=== PATIENT | male | born 1950 | race Caucasian/White ===

== ENCOUNTER 2022-07-19 09:41 | Outpatient (CLI) | payer MEDICARE, SELFPAY ==
[2022-07-19 15:21] LABS: Cholesterol* 191 mg/dL (90-199)
[2022-07-19 15:22] LABS: HDL Cholesterol* 43 mg/dL (>=40); LDL Cholesterol Calculated 113 mg/dL (<100); Triglycerides* 177 mg/dL (40-149)
== END 2022-07-19 09:42 | disposition home or self-care (01) ==
PROVIDERS: PCP Physician Assistant Medical; Visit Provider Physician Assistant Medical
DX: E78.5 Hyperlipidemia, unspecified (principal); R97.20 Elevated prostate specific antigen [PSA]
CPT/HCPCS: 80061; 84153

== ENCOUNTER 2023-07-19 09:26 | Outpatient (CLI) | payer MEDICARE, SELFPAY ==
--- OUTSIDE RECORDS SUMMARY | 2023-07-25 15:57 | XMS_ITS | Data Portability ---
Author Name Unknown Address [address] [place] [address] Phone [phone] Organization [facility] Address [address] [place] [address] Care Team Providers Care Recruiter Coordinator Name Role Phone YANN ARRIETA Primary Care Provider [phone] YANN ARRIETA Referring Provider Assessment No assessment recorded. Plan of Treatment Reminders Order Date Submit Date Provider Last Modified By Organization Details Last Modified Time Details Appointments ESTABLISH ED 15 2023 10:40A M Emeterio Martel MD Not available Not available Not available Lab urinalysi s, dipstick 2022 023 [facility], [address], [place], [address], 07/26/2022 12:19:40 PSA, total, serum or plasma - Please do 1 week prior to next visit with Dr. Martel which should be around 1 year from 08/31/212021 023 [email or web address] [facility], [address] [place], [address], 08/01/2022 08:35:21 urinalysi s, dipstick 2021 022 [facility], [address], [address], [place], [address], 08/31/2021 12:51:13 urinalysi s, complete 2021 022 [id number] [facility], [address], [address], [place], [address], 09/14/2021 10:31:53 urinalysi s, complete 2020 021 [facility], [address], [address], [place], [address], 08/11/2020 16:57:55 urinalysi s, dipstick 2020 021 [facility], [address], [address], [place], [address], 08/11/2020 12:46:52 Referral None recorded. Procedures None recorded. Surgeries None recorded. Imaging None recorded. Medication Orders None recorded. Patient TargetsNo targets recorded. Patient Instructions Encounter Date Encounter Id Patient Instructions Last Modified By Organization Details Last Modified Time 07/26/2022 [id number] BPH/prostate can cer screening: No concerns with voiding. Will continue to follow that. His prostate felt benign. His PSA is good. Repeat in 1 year. Not available 07/26/2022 11:56:02 08/31/2021 [id number] BPH: He's voidin g well and without any concerns. Will continue to monitor. Prostate cancer screening: His prostate feels benign. His PSA is ok. Repeat in 1 year. Not available 08/31/2021 12:51:27 08/11/2020 [id number] BPH: He's not bothered by his voiding. [...] plasm a PSA 7.45 high Not Available [facility] [address] [place], [address], 08/10/2020 13:24:34 08/11/19 21 08/11/2020 urina lysis , dipst ick color-status yellow yellow Not Available [facility] [address] [place] [address] [address], [place], [address], 08/11/2020 12:46:52 08/11/19 21 08/11/2020 urina lysis , dipst ick clarity-stat us clear clear Not Available [facility] [address] [place] [address] [address], [place], [address], 08/11/2020 12:46:52 08/11/19 21 08/11/2020 urina lysis , dipst ick glucose-stat us negati ve mg/dL negati ve Not Available [facility] [address] [place] [address] [address], [place], [address], 08/11/2020 12:46:52 08/11/19 21 08/11/2020 urina lysis , dipst ick bilirubin-ur ine negati ve negati ve Not Available [facility] [address] [place] [address] [address], [place], [address], 08/11/2020 12:46:52 08/11/19 21 08/11/2020 urina lysis , dipst ick ketones-stat us negati ve mg/dL negati ve Not Available [facility] [address] [place] [address] [address], [place], [address], 08/11/2020 12:46:52 08/11/19 21 08/11/2020 urina lysis , dipst ick SG-status >=1.03 0 1.00-1 .03 Not Available [facility] [address], [place], [address], 08/11/2020 12:46:52 08/11/19 21 08/11/2020 urina lysis , dipst ick pH-status 5.5 5.00-8 .00 Not Available [facility] [address] [facility] [address], [place], [address], 08/11/2020 12:46:52 08/11/1908/11/2020 urina lysis , dipst ick protein-stat us negati ve mg/dL negati ve Not Available [facility] [address], [place], [address], 08/11/2020 12:46:52 08/11/1908/11/2020 urina lysis , dipst ick urobilinogen -status 0.2 E.U./d L E.U./ dL 0.2 E.U./d L Not Available [facility] [address], [place], [address], 08/11/2020 12:46:52 08/11/1908/11/2020 urina lysis , dipst ick nitrites-sta tus negati ve negati ve Not Available [facility] [address], [place], [address], 08/11/2020 12:46:52 08/11/1908/11/2020 urina lysis , dipst ick blood-urine small negati ve abnormal Not Available [facility] [address], [place], [address], 08/11/2020 12:46:52 08/11/1908/11/2020 urina lysis , dipst ick leuko-status negati ve negati ve Not Available [facility] [address], [place], [address], 08/11/2020 12:46:52 08/11/19 21 08/11/2020 urina lysis , dipst ick performed by kavin Hickman Not Available [facility] [address] [place] [address] [address], [place], [address], 08/11/2020 12:46:52 08/11/19 21 08/11/2020 urina lysis , dipst ick total urine volume (mL) 30 /mL Not Available [facility] [address] [place] [address] [address], [place], [address], 08/11/2020 12:46:52 08/11/19 21 08/11/2020 urina lysis , compl ete color -advantus yellow yellow Not Available [facility] [address] [place] [address] [address], [place], [address], 08/11/2020 16:57:54 08/11/19 21 08/11/2020 urina lysis , compl ete appearance -advantus clear clear Not Available [facility] [address] [place] [address] [address], [place], [address], 08/11/2020 16:57:54 08/11/1908/11/2020 urina lysis , compl ete glucose -advantus negati ve mg/dL negati ve Not Available [facility] [address] [place] [address] [address], [place], [address], 08/11/2020 16:57:54 08/11/1908/11/2020 urina lysis , compl ete bilirubin -advantus negati ve negati ve Not Available [facility] [address] [place] [address] [address], [place], [address], 08/11/2020 16:57:54 08/11/19 21 08/11/2020 urina lysis , compl ete ketones -advantus negati ve mg/dL negati ve Not Available [facility] [address] [place] [address] [address], [place], [address], 08/11/2020 16:57:54 08/11/19 21 08/11/2020 urina lysis , compl ete sp. gravity -advantus >=1.03 0 1.010- 1.025 Not Available [facility] [address] [place] [address] [address], [place], [address], 08/11/2020 16:57:54 08/11/19 21 08/11/2020 urina lysis , compl ete pH -advantus 5.5 5.0-8. 0 Not Available [facility] [address] [place] [address] [address], [place], [address], 08/11/2020 16:57:54 08/11/19 21 08/11/2020 urina lysis , compl ete protein -advantus negati ve mg/dL negati ve Not Available [facility] [address] [place] [address], [place], [address], 08/11/2020 16:57:54 08/11/19 21 08/11/2020 urina lysis , compl ete urobilinogen -advantus 0.2 normal Not Available [facility] [address] [place] [address], [place], [address], 08/11/2020 16:57:54 08/11/19 21 08/11/2020 urina lysis , compl ete nitrites -advantus negati ve negati ve Not Available [facility] [address] [place] [address], [place], [address], 08/11/2020 16:57:54 08/11/19 21 08/11/2020 urina lysis , compl ete blood -advantus trace- intact negati ve abnormal Not Available [facility] [address] [place] [address] [address], [place], [address], 08/11/2020 16:57:54 08/11/19 21 08/11/2020 urina lysis , compl ete leukocytes -advantus negati ve negati ve Not Available [facility] [address] [place] [address] [address], [place], [address], 08/11/2020 16:57:54 08/11/19 21 08/11/2020 urina lysis , compl ete total urine volume (mL) 30 /mL Not Available [facility] [address] [place] [address], [place], [address], 08/11/2020 16:57:54 08/11/19 21 08/11/2020 urina lysis , compl ete U-WBC 0 - 2 [hpf] 0 - 2 Not Available [facility] [address] [place] [address], [place], [address], 08/11/2020 16:57:54 08/11/19 21 08/11/2020 urina lysis , compl ete U-RBC 0 - 2 [hpf] 0 - 2 Not Available [facility] [address] [place] [address], [place], [address], 08/11/2020 16:57:54 08/11/19 21 08/11/2020 urina lysis , compl ete bacteria small [hpf] negati ve abnormal Not Available [facility] [address] [place] [address], [place], [address], 08/11/2020 16:57:54 08/11/19 21 08/11/2020 urina lysis , compl ete squamous epi small /lpf negati ve,sma ll Not Available [facility] [address] [place] [address], [place], [address], 08/11/2020 16:57:54 08/31/19 22 08/31/2021 UA WITHO [facility] color-status yellow yellow Not Available [facility] [address], [place], [address], 08/31/2021 12:51:13 08/31/19 22 08/31/[address] [facility] clarity-stat us clear clear Not Available [facility] [address], [place], [address], 08/31/2021 12:51:13 08/31/19 22 08/31/[address] [facility] glucose-stat us negati ve mg/dL negati ve Not Available [facility] [address], [place], [address], 08/31/2021 12:51:13 08/31/19 22 08/31/[address] [facility] [facility] bilirubin-ur ine negati ve negati ve Not Available [facility] [address], [place], [address], 08/31/2021 12:51:13 08/31/19 22 08/31/[address] [facility] [facility] ketones-stat us negati ve mg/dL negati ve Not Available [facility] [address], [place], [address], 08/31/2021 12:51:13 08/31/19 22 08/31/[address] SG-status 1.025 1.00-1 .03 Not Available [facility] [address], [place], [address], 08/31/2021 12:51:13 08/31/19 22 08/31/[address] pH-status 6.0 5.00-8 .00 Not Available [facility] [address], [place], [address], 08/31/2021 12:51:13 08/31/19 22 08/31/[address] [facility] [facility] protein-stat us negati ve mg/dL negati ve Not Available [facility] [address], [place], [address], 08/31/2021 12:51:13 08/31/19 22 08/31/[address] [facility] urobilinogen -status 0.2 E.U./d L E.U./ dL 0.2 E.U./d L Not Available [facility] [address] [facility] [address], [place], [address], 08/31/2021 12:51:13 08/31/19 22 08/31/[address]A [facility] nitrites-sta tus negati ve negati ve Not Available [facility] [address], [place], [address], 08/31/2021 12:51:13 08/31/19 22 08/31/[address] [facility] blood-urine small negati ve abnormal Not Available [facility] [address] [facility] [address], [place], [address], 08/31/2021 12:51:13 08/31/19 22 08/31/[address] leuko-status negati ve negati ve Not Available [facility] [address], [place], [address], 08/31/2021 12:51:13 08/31/19 22 08/31/2021 [facility]A [facility] performed by rigo Chinchilla Not Available [facility] [address], [place], [address], 08/31/2021 12:51:13 08/31/19 22 08/31/20[address] total urine volume (mL) 50 /mL Not Available [facility] [address], [place], [address], 08/31/2021 12:51:13 07/19/19 23 07/19/2022 PSA, total , serum or plasm a PSA 2.10 Not Available [facility] [address] [place], [address], 07/20/2022 12:49:07 07/26/19 23 07/26/2022 UA DIP CS STATU S color -advantus yellow yellow Not Available [facility] [address] [place] [address], [place], [address], 07/26/2022 12:19:40 07/26/19 23 07/26/2022 UA DIP CS STATU S appearance -advantus clear clear Not Available [facility] [address] [place] [address], [place], [address], 07/26/2022 12:19:40 07/26/19 23 07/26/2022 UA DIP CS STATU S glucose -advantus negati ve mg/dL negati ve Not Available [facility] [address] [place] [address], [place], [address], 07/26/2022 12:19:40 07/26/19 23 07/26/2022 UA DIP CS STATU S bilirubin -advantus negati ve negati ve Not Available [facility] [address] [place] [address], [place], [address], 07/26/2022 12:19:40 07/26/19 23 07/26/2022 UA DIP CS STATU S ketones -advantus negati ve mg/dL negati ve Not Available [facility] [address] [place] [address], [place], [address], 07/26/2022 12:19:40 07/26/19 23 07/26/2022 UA DIP CS STATU S sp. gravity -advantus 1.025 1.010- 1.025 Not Available [facility] [address] [place] [address], [place], [address], 07/26/2022 12:19:40 07/26/19 23 07/26/2022 UA DIP CS STATU S pH -advantus 5.0 5.0-8. 0 Not Available [facility] [address] [facility] [facility] [address], [place], [address], 07/26/2022 12:19:40 07/26/19 23 07/26/2022 UA DIP CS STATU S protein -advantus negati ve mg/dL negati ve Not Available [facility] [address] [place] [address] [address], [place], [address], 07/26/2022 12:19:40 07/26/19 23 07/26/2022 UA DIP CS STATU S urobilinogen -advantus 0.2 0.2 E.U./d L Not Available [facility] [address] [facility] [facility] [address], [place], [address], 07/26/2022 12:19:40 07/26/19 23 07/26/2022 UA DIP CS STATU S nitrites -advantus negati ve negati ve Not Available [facility] [address] [place] [address] [address], [place], [address], 07/26/2022 12:19:40 07/26/19 23 07/26/2022 UA DIP CS STATU S blood -advantus modera te negati ve abnormal Not Available [facility] [address] [facility] [address], [place], [address], 07/26/2022 12:19:40 07/26/19 23 07/26/2022 UA DIP CS STATU S leukocytes -advantus negati ve negati ve Not Available [facility] [address] [facility] [facility] [address], [place], [address], 07/26/2022 12:19:40 07/26/19 23 07/26/2022 UA DIP CS STATU S performed by myrna Dean Not Available [facility] [address] [facility] [facility] [address], [place], [address], 07/26/2022 12:19:40 07/26/19 23 07/26/2022 UA DIP CS STATU S total urine volume (mL) 50 /mL Not Available [facility] [address] [place] [address] [address], [place], [address], 07/26/2022 12:19:40 07/26/19 23 07/26/2022 UA MICRO SCOPI C U-WBC 0 - 2 [hpf] 0 - 2 Not Available [facility] [address], [place], [address], 07/26/2022 12:19:42 07/26/19 23 07/26/2022 UA MICRO SCOPI C U-RBC 0 - 2 [hpf] 0 - 2 Not Available [facility] [address] [facility] [facility] [address], [place], [address], 07/26/2022 12:19:42 07/26/19 23 07/26/2022 UA MICRO SCOPI C bacteria small [hpf] negati ve abnormal Not Available [facility] [address] [place] [address] [address], [place], [address], 07/26/2022 12:19:42 07/26/19 23 07/26/2022 UA MICRO SCOPI C squamous epi negati ve /lpf negati ve,sma ll Not Available [facility] [address] [place] [address] [address], [place], [address], 07/26/2022 12:19:42 07/26/19 23 07/26/2022 UA MICRO SCOPI C hyaline cast 0 - 5 [hpf] 0 - 5 Not Available [facility] [address] [place] [address] [address], [place], [address], 07/26/2022 12:19:42 Result Notes None recorded. Problems Name Status Onset Date Resolution Date Notes Provider Name and Address Organization Details Recorded Time Microscopic hematuria Active 020 R31.21 : Microscopic hematuria Not Available [facility] 0 00:24:56 Prostate specific antigen above reference range Active 021 Emeterio Martel MD [address] [place] [address],[address], [place], [address], [facility] 1 13:05:15 Screening for malignant neoplasm of prostate Active 022 Emeterio Martel MD [address] [place] [address],[address] [address], [facility] 2 12:51:27 Benign prostatic hyperplasia with outflow obstruction Active 022 Emeterio Martel MD [address] [place] [address],[facility] [address], [place], [address], [facility] 2 12:51:28 Problem Notes None recorded. Procedures Surgical History Date Name Laterality Status Provider Name and Address Organization Details Recorded Time 07/26/19 23 Bladder Scan completed Hector sweet [facility] 07/26/2022 11:52:57 08/31/19 22 Bladder Scan completed Bernadine sweet [facility] 08/31/2021 12:43:36 08/11/19 21 Past Data Reviewed completed Emeterio Martel MD [address] [place] [address],[facility] [address], [place], [address], [facility] 08/11/2020 13:14:55 08/11/19 21 Bladder Scan completed Bernadine sweet [facility] 08/11/2020 12:59:52 09/03/19 20 urine capacity measure [...] Name and Address Organization Details Recorded Time [id number] simvastat in medicatio n Not available Not available Not available 12/16/2019 05373 RxNorm Not Available [facility] 0 23:59:00 Medications Name Sig Start Date [...] Updated DateTime 07/26/2022 165.1 cm 23.6 kg/m2 [address]0415.[address] [facility] 07/26/2022 11:29:18 Date Recorded Body height Body mass index (BMI) Body weight Provider Name and Address Organization Details Last Updated DateTime 08/11/2020 165.1 cm 26.1 kg/m2 [address] [facility] 08/11/2020 12:58:23 Date Recorded Body height Body weight Body mass index (BMI) Provider Name and Address Organization Details Last Updated DateTime 08/31/2021 165.1 cm 12721.31915 74565 g 23.6 kg/m2 Not Available Health Note [...] prostate:Father Cancer, pancreatic:Mother Medical History Condition Response Diabetes N Sexually Transmitted Infection N Bleeding Disorder N High Blood Pressure Y Kidney Stones N Cancer N Lung Disease N Depression N High Cholesterol Y GERD/Acid Reflux N Heart Disease N Immunizations Vaccine Type Date Status Provider Name and Address Organization Details Recorded Time influenza, unspecified formulation 04/18/2021 completed Bernadine sweet [facility] 08/31/2021 12:40:53 pneumococcal, unspecified formulation 08/08/2020 [facility] 12:40:53 SARS-COV-2 (COVID-19) vaccine, UNSPECIFIED 09/30/2020 [facility] 08/31/2021 12:40:53 Influenza, seasonal, injectable, preservative free 08/17/2011 completed Bernadine sweet [facility] 08/31/2021 12:40:53 Influenza, high dose seasonal 04/27/2019 completed Bernadine sweet [facility] 08/31/2021 12:40:53 influenza, unspecified formulation 04/17/2006 completed Bernadine sweet [facility] 08/31/2021 12:40:53 zoster recombinant 02/25/2020 [facility]21 12:40:53 Influenza, high dose seasonal 06/14/2015 [facility] 08/31/2021 12:40:53 influenza, high-dose, quadrivalent 04/18/2021 completed Bernadine sweet [facility] 08/31/2021 12:40:53 Tdap 08/01/2007 [facility] 08/31/2021 12:40:53 Pneumococcal conjugate PCV 13 07/29/2015 completed Bernadine sweet [facility] 08/31/2021 12:40:53 pneumococcal polysaccharide PPV23 08/08/2020 [facility] 08/[facility]21 12:40:53 influenza, high-dose, quadrivalent 04/26/2020 completed Bernadine sweet, [facility] 08/31/2021 12:40:53 Td (adult), 2 Lf tetanus toxoid, preservative free, adsorbed 08/10/2019 completed Bernadine sweet, [facility] 08/31/2021 12:40:53 COVID-19, mRNA, LNP-S, PF, 30 mcg/0.3 mL dose 04/18/2021 completed Bernadine sweet, [facility] 08/31/2021 12:40:53 Novel [id number], all formulations 06/30/2009 [facility] 08/31/2021 12:40:53 Influenza, seasonal, injectable, preservative free 06/30/2009 completed Bernadine sweet, [facility] 08/31/2021 12:40:53 influenza, unspecified formulation 05/22/2007 [facility] 08/31/2021 12:40:53 zoster recombinant 08/14/2021 [facility] 08/31/[facility]21 12:40:53 COVID-19, mRNA, LNP-S, PF, 30 mcg/0.3 mL dose 09/30/2020 [facility]/31/2021 12:40:53 COVID-19, mRNA, LNP-S, PF, 30 mcg/0.3 mL dose 09/09/2020 completed Bernadine sweet, [facility] 08/31/2021 12:40:53 pneumococcal polysaccharide PPV23 08/17/2011 [facility] 08/31/2021 12:40:53 Td (adult), 2 Lf tetanus toxoid, preservative free, adsorbed 09/13/1999 [facility] 08/31/2021 12:40:53 Influenza, high dose seasonal 04/21/2018 [facility]/31/2021 12:40:53 Influenza, high dose seasonal 04/16/2017 [facility]21 12:40:53 Influenza, high dose seasonal 04/11/2016 completed Bernadine sweet, [facility] 08/31/2021 12:40:53 zoster recombinant 08/17/2020 completed Bernadine sweet [facility] 08/31/2021 12:40:53 Pneumococcal conjugate PCV 13 08/08/2020 completed Brenadine sweet, [facility] 08/31/2021 12:40:53 pneumococcal, unspecified formulation 08/08/2020 completed Not Available Health Note 07/22/2022 12:12:02 SARS-COV-2 (COVID-19) vaccine, UNSPECIFIED 03/22/2022 completed Not Available Health Note 07/22/2022 12:12:02 influenza, unspecified formulation 03/22/2022 completed Not Available Health Note 07/22/2022 12:12:02 Past Encounters Encounter ID Performer Location Encounter Start Date Encounter Closed Date Diagnosis/Indication [id number] Emeterio Martel MD [address] [address] 08/11/2020 12:33:03 08/11/2020 14:53:14 Benign prostatic hyperplasia with outflow obstruction Microscopic hematuria Prostate specific antigen above reference range [id number] Emeterio Martel MD [address] [address] 08/31/2021 12:33:52 08/31/2021 12:53:36 Benign prostatic hyperplasia with outflow obstruction Screening for malignant neoplasm of prostate [id number] Emeterio Martel MD [facility] [address] [place] [address] 07/26/2022 11:28:18 07/26/2022 12:00:09 Benign prostatic hyperplasia [...] AFTER 19 (MEDICARE REPLACEMENT/ ADVANTAGE - PPO) [id number] Navin Mandel [id number] Navin Mandel 08/31/2021 1 [employer] - DOS ON OR AFTER 19 (MEDICARE REPLACEMENT/ ADVANTAGE - PPO) [id number] Navin Mandel [id number] Navin Mandel 08/11/2020 1 [facility] - DOS PRIOR TO 2021 [id number] Navin Mandel [id number] Navin Mandel Notes Date Note Type Note Provider Name and Address Organization Details Recorded Time 08/11/2020 text/html HPI Notes: 2019: HTN, HLD, gout, [facility]EDAR, DJD, ED. CT A/P 07/11/2019 ([place]) = acute diverticulitis, enlarged heterogeneous prostate with [...] or renal cancer. Emeterio Martel MD [address] [facility],[address], [place], [place], [id number], [facility] 08/11/2020 13:16:26 08/31/2021 text/html HPI Notes: 2019: HTN, HLD, gout, KEDAR, DJD, ED. CT A/P 07/11/2019 ([place]) = acute diverticulitis, enlarged heterogeneous prostate with [...] or renal cancer. Emeterio Martel MD [address] [facility] [facility],[address], [place], [address], [place] [facility] 08/31/2021 12:53:23 07/26/2022 text/html HPI Notes: 2019: HTN, HLD, gout, KEDAR, DJD, ED. CT A/P 07/11/2019 ([place]) = acute diverticulitis, enlarged heterogeneous prostate with [...] or renal cancer. Emeterio Martel MD [address] [facility] [facility],[address], [place], [address], [facility] 07/26/2022 11:57:59
== END 2023-07-19 09:27 | disposition home or self-care (01) ==
LOC: NFLDREF 07-25 15:55
PROVIDERS: PCP Physician Assistant Medical; Referring Provider Physician Assistant Medical; Visit Provider Physician Assistant Medical
DX: E78.5 Hyperlipidemia, unspecified (principal); I10 Essential (primary) hypertension; R05.9 Cough, unspecified; R73.09 Other abnormal glucose; R97.20 Elevated prostate specific antigen [PSA]
CPT/HCPCS: 80053; 80061; 84153

== ENCOUNTER 2023-07-23 10:15 | Outpatient (CLI) | payer MEDICARE, SELFPAY ==
--- OUTSIDE RECORDS SUMMARY | 2023-07-23 10:19 | XMS_ITS | Data Portability ---
Author Name Unknown Address [address] [place] [address] Phone [phone] Organization [facility] [place] Address [address] [place] [address] Care Team Providers Care Tentering Machine Feeder Name Role Phone YANN ARRIETA Primary Care Provider [phone] YANN ARRIETA Referring Provider Assessment No assessment recorded. Plan of Treatment Reminders Order Date Submit Date Provider Last Modified By Organization Details Last Modified Time Details Appointments ESTABLISH ED 15 2023 10:40A M Emeterio Martel MD Not available Not available Not available Lab urinalysi s, dipstick 2022 023 [facility], [address] [facility] [address] [facility], [place], [address], 07/26/2022 12:19:40 PSA, total, serum or plasma - Please do 1 week prior to next visit with Dr. Martel which should be around 1 year from 08/31/212021 023 [facility], [address] [place], [address], 08/01/2022 08:35:21 urinalysi s, dipstick 2021 022 [facility], [address] [facility] [address], [place], [address], 08/31/2021 12:51:13 urinalysi s, complete 2021 022 [email or web address] [facility], [address], [place], [address], 09/14/2021 10:31:53 urinalysi s, complete 2020 021 [facility], [address], [place], [address], 08/11/2020 16:57:55 urinalysi s, dipstick 2020 021 [facility], [address], [place], [address], 08/11/2020 12:46:52 Referral None recorded. Procedures None recorded. Surgeries None recorded. Imaging None recorded. Medication Orders None recorded. Patient TargetsNo targets recorded. Patient Instructions Encounter Date Encounter Id Patient Instructions Last Modified By Organization Details Last Modified Time 07/26/2022 [id number] BPH/prostate can cer screening: No concerns with voiding. Will continue to follow that. His prostate felt benign. His PSA is good. Repeat in 1 year. Not available 07/26/2022 11:56:02 08/31/2021 [id number] BPH: He's voidin g well and without any concerns. Will continue to monitor. Prostate cancer screening: His prostate feels benign. His PSA is ok. Repeat in 1 year. Not available 08/31/2021 12:51:27 08/11/2020 [id number] BPH: He's not bothered by his voiding. Will continue to monitor symptoms. Microscopic hematuria: Will send his urine for microscopy to see if he has blood in his urine or not. If he does, that's ok as he had a negative work up last year. Elevated PSA: His PSA jumped a lot from the last value. His prostate feels benign. I suspect that he had a catheter placed at the time of his laparoscopic cholecystectomy to help drain the bladder and then removed at the end of surgery. This can cause a PSA to be false elevated and his PSA was drawn 6 days after surgery. I recommend repeating the PSA in 1 month. If still elevated, will need to work it up. Will determine follow up after the next PSA. Not available 08/11/2020 13:14:28 Reason for Referral None Reported. Results Created Date Observation Date Name Description Value Unit Range Abnormal Flag LastModifiedBy Organization Detail LastModifiedTime 07/18/19 21 07/18/2020 PSA, total , serum or plasm a PSA 7.45 high Not Available [facility] [address] [place], [address], 08/10/2020 13:24:34 08/11/19 21 08/11/2020 urina lysis , dipst ick color-status yellow yellow Not Available [facility] [address] [place] [address] [address], [place], [address], 08/11/2020 12:46:52 08/11/19 21 08/11/2020 urina lysis , dipst ick clarity-stat us clear clear Not Available [facility] [address] [place] [address] [address], [place], [address], 08/11/2020 12:46:52 08/11/19 21 08/11/2020 urina lysis , dipst ick glucose-stat us negati ve mg/dL negati ve Not Available [facility] [address] [place] [address] [address], [place], [address], 08/11/2020 12:46:52 08/11/19 21 08/11/2020 urina lysis , dipst ick bilirubin-ur ine negati ve negati ve Not Available [facility] [address] [place] [address] [address], [place], [address], 08/11/2020 12:46:52 08/11/19 21 08/11/2020 urina lysis , dipst ick ketones-stat us negati ve mg/dL negati ve Not Available [facility] [address] [place] [address] [address], [place], [address], 08/11/2020 12:46:52 08/11/19 21 08/11/2020 urina lysis , dipst ick SG-status >=1.03 0 1.00-1 .03 Not Available [facility] [address] [facility] [address], [place], [address], 08/11/2020 12:46:52 08/11/19 21 08/11/2020 urina lysis , dipst ick pH-status 5.5 5.00-8 .00 Not Available [facility] [address] [facility] [address], [place], [address], 08/11/2020 12:46:52 08/11/1908/11/2020 urina lysis , dipst ick protein-stat us negati ve mg/dL negati ve Not Available [facility] [address] [facility] [address], [place], [address], 08/11/2020 12:46:52 08/11/1908/11/2020 urina lysis , dipst ick urobilinogen -status 0.2 E.U./d L E.U./ dL 0.2 E.U./d L Not Available [facility] [address] [facility] [address], [place], [address], 08/11/2020 12:46:52 08/11/1908/11/2020 urina lysis , dipst ick nitrites-sta tus negati ve negati ve Not Available [facility] [address] [facility] [address], [place], [address], 08/11/2020 12:46:52 08/11/1908/11/2020 urina lysis , dipst ick blood-urine small negati ve abnormal Not Available [facility] [address] [facility] [address], [place], [address], 08/11/2020 12:46:52 08/11/1908/11/2020 urina lysis , dipst ick leuko-status negati ve negati ve Not Available [facility] [address] [facility] [address], [place], [address], 08/11/2020 12:46:52 08/11/19 21 08/11/2020 urina lysis , dipst ick performed by kavin Hickman Not Available [facility] [address] [place] [address] [address], [place], [address], 08/11/2020 12:46:52 08/11/19 21 08/11/2020 urina lysis , dipst ick total urine volume (mL) 30 /mL Not Available [facility] [address] [place] [address] [address], [place], [address], 08/11/2020 12:46:52 08/11/19 21 08/11/2020 urina lysis , compl ete color -advantus yellow yellow Not Available [facility] [address] [place] [address] [address], [place], [address], 08/11/2020 16:57:54 08/11/19 21 08/11/2020 urina lysis , compl ete appearance -advantus clear clear Not Available [facility] [address] [place] [address] [address], [place], [address], 08/11/2020 16:57:54 08/11/1908/11/2020 urina lysis , compl ete glucose -advantus negati ve mg/dL negati ve Not Available [facility] [address] [place] [address] [address], [place], [address], 08/11/2020 16:57:54 08/11/1908/11/2020 urina lysis , compl ete bilirubin -advantus negati ve negati ve Not Available [facility] [address] [place] [address] [address], [place], [address], 08/11/2020 16:57:54 08/11/19 21 08/11/2020 urina lysis , compl ete ketones -advantus negati ve mg/dL negati ve Not Available [facility] [address] [place] [address] [address], [place], [address], 08/11/2020 16:57:54 08/11/19 21 08/11/2020 urina lysis , compl ete sp. gravity -advantus >=1.03 0 1.010- 1.025 Not Available [facility] [address] [place] [address] [address], [place], [address], 08/11/2020 16:57:54 08/11/19 21 08/11/2020 urina lysis , compl ete pH -advantus 5.5 5.0-8. 0 Not Available [facility] [address] [place] [address] [address], [place], [address], 08/11/2020 16:57:54 08/11/19 21 08/11/2020 urina lysis , compl ete protein -advantus negati ve mg/dL negati ve Not Available [facility] [address] [place] [address], [place], [address], 08/11/2020 16:57:54 08/11/19 21 08/11/2020 urina lysis , compl ete urobilinogen -advantus 0.2 normal Not Available [facility] [address] [place] [address], [place], [address], 08/11/2020 16:57:54 08/11/19 21 08/11/2020 urina lysis , compl ete nitrites -advantus negati ve negati ve Not Available [facility] [address] [place] [address], [place], [address], 08/11/2020 16:57:54 08/11/19 21 08/11/2020 urina lysis , compl ete blood -advantus trace- intact negati ve abnormal Not Available [facility] [address] [place] [address] [address], [place], [address], 08/11/2020 16:57:54 08/11/19 21 08/11/2020 urina lysis , compl ete leukocytes -advantus negati ve negati ve Not Available [facility] [address] [place] [address] [address], [place], [address], 08/11/2020 16:57:54 08/11/19 21 08/11/2020 urina lysis , compl ete total urine volume (mL) 30 /mL Not Available [facility] [address] [place] [address], [place], [address], 08/11/2020 16:57:54 08/11/19 21 08/11/2020 urina lysis , compl ete U-WBC 0 - 2 [hpf] 0 - 2 Not Available [facility] [address] [place] [address], [place], [address], 08/11/2020 16:57:54 08/11/19 21 08/11/2020 urina lysis , compl ete U-RBC 0 - 2 [hpf] 0 - 2 Not Available [facility] [address] [place] [address], [place], [address], 08/11/2020 16:57:54 08/11/19 21 08/11/2020 urina lysis , compl ete bacteria small [hpf] negati ve abnormal Not Available [facility] [address] [place] [address], [place], [address], 08/11/2020 16:57:54 08/11/19 21 08/11/2020 urina lysis , compl ete squamous epi small /lpf negati ve,sma ll Not Available [facility] [address] [place] [address], [place], [address], 08/11/2020 16:57:54 08/31/19 22 08/31/2021 UA WITHO [facility] color-status yellow yellow Not Available [facility] [address] [facility] [address], [place], [address], 08/31/2021 12:51:13 08/31/19 22 08/31/[address] [facility] clarity-stat us clear clear Not Available [facility] [address] [facility] [address], [place], [address], 08/31/2021 12:51:13 08/31/19 22 08/31/[address] [facility] [facility] glucose-stat us negati ve mg/dL negati ve Not Available [facility] [address] [facility] [address], [place], [address], 08/31/2021 12:51:13 08/31/19 22 08/31/[address] [facility] [facility] bilirubin-ur ine negati ve negati ve Not Available [facility] [address] [facility] [address], [place], [address], 08/31/2021 12:51:13 08/31/19 22 08/31/[address] [facility] [facility] ketones-stat us negati ve mg/dL negati ve Not Available [facility] [address] [facility] [address], [place], [address], 08/31/2021 12:51:13 08/31/19 22 08/31/[address] [facility] [facility] SG-status 1.025 1.00-1 .03 Not Available [facility] [address] [facility] [address], [place], [address], 08/31/2021 12:51:13 08/31/19 22 08/31/[address] [facility] pH-status 6.0 5.00-8 .00 Not Available [facility] [address] [facility] [address], [place], [address], 08/31/2021 12:51:13 08/31/19 22 08/31/[address] [facility] protein-stat us negati ve mg/dL negati ve Not Available [facility] [address] [facility] [address], [place], [address], 08/31/2021 12:51:13 08/31/19 22 08/31/[address] urobilinogen -status 0.2 E.U./d L E.U./ dL 0.2 E.U./d L Not Available [facility] [address] [facility] [address], [place], [address], 08/31/2021 12:51:13 08/31/19 22 08/31/[address] [facility] nitrites-sta tus negati ve negati ve Not Available [facility] [address] [facility] [address], [place], [address], 08/31/2021 12:51:13 08/31/19 22 08/31/[address] [facility] blood-urine small negati ve abnormal Not Available [facility] [address] [facility] [address], [place], [address], 08/31/2021 12:51:13 08/31/19 22 08/31/[address] leuko-status negati ve negati ve Not Available [facility] [address] [facility] [address], [place], [address], 08/31/2021 12:51:13 08/31/19 22 08/31/20[address] [facility] performed by rigo Chinchilla Not Available [facility] [address] [facility] [address], [place], [address], 08/31/2021 12:51:13 08/31/19 22 08/31/[address] [facility] [facility] total urine volume (mL) 50 /mL Not Available [facility] [address] [facility] [address], [place], [address], 08/31/2021 12:51:13 07/19/19 23 07/19/2022 PSA, total , serum or plasm a PSA 2.10 Not Available [facility] [address] [place], [address], 07/20/2022 12:49:07 07/26/19 23 07/26/2022 UA DIP CS STATU S color -advantus yellow yellow Not Available [facility] [address] [place] [address], [place], [address], 07/26/2022 12:19:40 07/26/19 23 07/26/2022 UA DIP CS STATU S appearance -advantus clear clear Not Available [facility] [address] [place] [address], [place], [address], 07/26/2022 12:19:40 07/26/19 23 07/26/2022 UA DIP CS STATU S glucose -advantus negati ve mg/dL negati ve Not Available [facility] [address] [place] [address], [place], [address], 07/26/2022 12:19:40 07/26/19 23 07/26/2022 UA DIP CS STATU S bilirubin -advantus negati ve negati ve Not Available [facility] [address] [place] [address], [place], [address], 07/26/2022 12:19:40 07/26/19 23 07/26/2022 UA DIP CS STATU S ketones -advantus negati ve mg/dL negati ve Not Available [facility] [address] [place] [address], [place], [address], 07/26/2022 12:19:40 07/26/19 23 07/26/2022 UA DIP CS STATU S sp. gravity -advantus 1.025 1.010- 1.025 Not Available [facility] [address] [place] [address], [place], [address], 07/26/2022 12:19:40 07/26/19 23 07/26/2022 UA DIP CS STATU S pH -advantus 5.0 5.0-8. 0 Not Available [facility] [address] [facility] [address], [place], [address], 07/26/2022 12:19:40 07/26/19 23 07/26/2022 UA DIP CS STATU S protein -advantus negati ve mg/dL negati ve Not Available [facility] [address] [place] [address] [address], [place], [address], 07/26/2022 12:19:40 07/26/19 23 07/26/2022 UA DIP CS STATU S urobilinogen -advantus 0.2 0.2 E.U./d L Not Available [facility] [address] [facility] [address], [place], [address], 07/26/2022 12:19:40 07/26/19 23 07/26/2022 UA DIP CS STATU S nitrites -advantus negati ve negati ve Not Available [facility] [address] [place] [address] [address], [place], [address], 07/26/2022 12:19:40 07/26/19 23 07/26/2022 UA DIP CS STATU S blood -advantus modera te negati ve abnormal Not Available [facility] [address] [facility] [address], [place], [address], 07/26/2022 12:19:40 07/26/19 23 07/26/2022 UA DIP CS STATU S leukocytes -advantus negati ve negati ve Not Available [facility] [address] [facility] [address], [place], [address], 07/26/2022 12:19:40 07/26/19 23 07/26/2022 UA DIP CS STATU S performed by myrna Dean Not Available [facility] [address] [facility] [address], [place], [address], 07/26/2022 12:19:40 07/26/19 23 07/26/2022 UA DIP CS STATU S total urine volume (mL) 50 /mL Not Available [facility] [address] [place] [address] [address], [place], [address], 07/26/2022 12:19:40 07/26/19 23 07/26/2022 UA MICRO SCOPI C U-WBC 0 - 2 [hpf] 0 - [address] [facility] [address] [facility] [address], [place], [address], 07/26/2022 12:19:42 07/26/19 23 07/26/2022 UA MICRO SCOPI C U-RBC 0 - 2 [hpf] 0 - [address] [facility] [address] [facility] [address], [place], [address], 07/26/2022 12:19:42 07/26/19 23 07/26/2022 UA MICRO SCOPI C bacteria small [hpf] negati ve abnormal Not Available [facility] [address] [place] [address] [address], [place], [address], 07/26/2022 12:19:42 07/26/19 23 07/26/2022 UA MICRO SCOPI C squamous epi negati ve /lpf negati ve,sma ll Not Available [facility] [address] [place] [address] [address], [place], [address], 07/26/2022 12:19:42 07/26/19 23 07/26/2022 UA MICRO SCOPI C hyaline cast 0 - 5 [hpf] 0 - 5 Not Available [facility] [address] [place] [address] [address], [place], [address], 07/26/2022 12:19:42 Result Notes None recorded. Problems Name Status Onset Date Resolution Date Notes Provider Name and Address Organization Details Recorded Time Microscopic hematuria Active 020 R31.21 : Microscopic hematuria Not Available [facility] 0 00:24:56 Prostate specific antigen above reference range Active 021 Emeterio Martel MD [address] [place] [address],[address], [place], [address], [facility] 1 13:05:15 Screening for malignant neoplasm of prostate Active 022 Emeterio Martel MD [address] [place] [address],[address] [address], [facility] 2 12:51:27 Benign prostatic hyperplasia with outflow obstruction Active 022 Emeterio Martel MD [address] [place] [address],[facility] [address], [place], [address], [facility] 2 12:51:28 Problem Notes None recorded. Procedures Surgical History Date Name Laterality Status Provider Name and Address Organization Details Recorded Time 07/26/19 23 Bladder Scan completed Hector sweet [facility] 07/26/2022 11:52:57 08/31/19 22 Bladder Scan completed Bernadine sweet [facility] 08/31/2021 12:43:36 08/11/19 21 Past Data Reviewed completed Emeterio Martel MD [address] [place] [address],[facility] [address], [place], [address], [facility] 08/11/2020 13:14:55 08/11/19 21 Bladder Scan completed Bernadine sweet [facility] 08/11/2020 12:59:52 09/03/19 20 urine capacity measure completed Not Available Health Note 07/22/2022 12:11:57 09/03/19 20 Cystoscopy completed Not Available Health Note 07/22/2022 12:11:57 08/09/19 20 Colonoscopy thru stoma spx completed Not Available [facility] Note 07/22/2022 12:11:57 Laparoscopic cholecystectomy completed Not Available Health Note 07/22/2022 12:11:57 Imaging Results None recorded. Procedure Notes None recorded. Medical Equipment None Reported. Allergies Allergen ID Allergen Name Allergen Category Reaction Reaction Severity Criticality Documentation Date Start Date Code Code System Note Provider Name and Address Organization Details Recorded Time 764500 simvastat in medicatio n Not available Not available Not available 12/16/2019 46566 RxNorm Not Available [facility] 0 23:59:00 Medications Name Sig Start Date Stop Date Status Note LastModified by Organization Details LastModified Time pravastat in 40 mg tablet TAKE ONE TABLET BY MOUTH AT BEDTIME active HN: Patient reports taking Not Available Not Available Not Available lisinopri l 20 mg tablet TAKE 1 TABLET BY MOUTH DAILY. active HN: Patient reports taking Not Available Not Available Not Available ketorolac 0.5 % eye drops Beginnin g 4 hours after surgery, instill 1 drop in surgical eye 4 times daily until gone. Do not exceed 3 weeks. active Not Available Not Available No t Available prednisol one acetate 1 % eye drops,alize pension Beginnin g 4 hours after surgery, instill 1 drop in surgical eye 4 times daily until gone. Do not exceed 3 weeks. active Not Available Not Available No t Available amoxicill in 875 mg-potass ium clavulana te 125 mg tablet TAKE 1 TABLET BY MOUTH TWICE DAILY FOR 7 DAYS 08/11 completed Not Available Not Available Not Available oxycodone 5 mg tablet TAKE 1-2 TABLETS BY MOUTH EVERY 4 HOURS NEEDED. MAX 6 TABLETS PER DAY. 08/11 completed Not Available Not Available Not Available Fish Oil active HN: Patient reports taking Not Available Not Available Not Available multivita min MULTIVIT KENDRICK 1/day active Not Available Not Available No t Available coQ10 (liposoma l ubiquinol ) 300mg 1/day active Not Available Not Available No t Available gatifloxa juan 0.5 % eye drops Beginnin g 4 hours after surgery, instill 1 drop in surgical eye 4 times daily until gone. Do not exceed 3 weeks. active Not Available Not Available No t Available Adult Aspirin Regimen 81 mg tablet,de layed release Take 1 tablet every day by oral route. active HN: Patient reports taking Not Available Not Available Not Available Vitals Date Recorded Body height Body mass index (BMI) Body weight Provider Name and Address Organization Details Last Updated DateTime 07/26/2022 165.1 cm 23.6 kg/m2 34895.12 g Peter Ruud [facility] 07/26/2022 11:29:18 Date Recorded Body height Body mass index (BMI) Body weight Provider Name and Address Organization Details Last Updated DateTime 08/11/2020 165.1 cm 26.1 kg/m2 48972 g Bernadine Haas [facility] 08/11/2020 12:58:23 Date Recorded Body height Body weight Body mass index (BMI) Provider Name and Address Organization Details Last Updated DateTime 08/31/2021 165.1 cm 38073.55311 20655 g 23.6 kg/m2 Not Available Health Note 08/31/2021 12:34:51 Social History Question Answer Notes LastModified by Organizat ion Details LastModified Time Tobacco Smoking Status Former Smoker Not Available Health Note 07/22/2022 12:11:58 What Is Your Level Of Alcohol Consumption? Occasional [email or web address] Information not available 07/22/2022 What Is Your Level Of Caffeine Consumption? Moderate [email or web address] Information not available 07/22/2022 How Much Tobacco Do You Chew? None [email or web address] Information not available 07/22/2022 Do You Or Have You Ever Used E-cigarettes Or Vape? Never Used Electronic Cigarettes [email or web address] Information not available 07/22/2022 When Did You Quit Smoking? 16+yearssincel astcilyssa Information not available 07/26/2022 Race White [email or web address] Information n ot available 12/17/2019 Marital Status [email or web address] Informatio n not available 08/27/2021 What Was The Date Of Your Most Recent Tobacco Screening? 07/26/2022 [email or web address] Information not available 07/22/2022 Do You Or Have You Ever Used Smokeless Tobacco? Never Used Smokeless Tobacco [email or web address] Information not available 07/22/2022 Do You Use Any Illicit Or Recreational Drugs? No [email or web address] Information not available 07/22/2022 Has Tobacco Cessation Counseling Been Provided? No Information not available 07/26/2022 How Many Years Have You Smoked Tobacco? 10 [email or web address] Information not available 07/22/2022 Sex: Male Functional Status None recorded. Mental Status None recorded. Family History Relationship Description Onset Age of this Age Resolved Age Notes Notes:Diabetes:Runs in Famil y colon cancer:Father Cancer, prostate:Father Cancer, pancreatic:Mother Medical History Condition Response Sexually Transmitted Infection N Diabetes N Bleeding Disorder N High Blood Pressure Y Kidney Stones N Cancer N Lung Disease N Depression N High Cholesterol Y GERD/Acid Reflux N Heart Disease N Immunizations Vaccine Type Date Status Provider Name and Address Organization Details Recorded Time influenza, unspecified formulation 04/18/2021 completed Bernadine sweet [facility] 08/31/2021 12:40:53 pneumococcal, unspecified formulation 08/08/2020 [facility] 12:40:53 SARS-COV-2 (COVID-19) vaccine, UNSPECIFIED 09/30/2020 [facility] 08/31/2021 12:40:53 Influenza, seasonal, injectable, preservative free 08/17/2011 completed Bernadine sweet [facility] 08/31/2021 12:40:53 Influenza, high dose seasonal 04/27/2019 completed Bernadine sweet [facility] 08/31/2021 12:40:53 influenza, unspecified formulation 04/17/2006 completed Bernadine sweet [facility] 08/31/2021 12:40:53 zoster recombinant 02/25/2020 [facility] 12:40:53 Influenza, high dose seasonal 06/14/2015 [facility]21 12:40:53 influenza, high-dose, quadrivalent 04/18/2021 completed Bernadine sweet [facility] 08/31/2021 12:40:53 Tdap 08/01/2007 [facility]21 12:40:53 Pneumococcal conjugate PCV 13 07/29/2015 completed Bernadine sweet [facility] 08/31/2021 12:40:53 pneumococcal polysaccharide PPV23 08/08/2020 [facility] 12:40:53 influenza, high-dose, quadrivalent 04/26/2020 completed Bernadine sweet, [facility] 08/31/2021 12:40:53 Td (adult), 2 Lf tetanus toxoid, preservative free, adsorbed 08/10/2019 completed Bernadine sweet, [facility] 08/31/2021 12:40:53 COVID-19, mRNA, LNP-S, PF, 30 mcg/0.3 mL dose 04/18/2021 completed Bernadine sweet, [facility] 08/31/2021 12:40:53 Novel Rirtyfqos-[id number], all formulations 06/30/2009 [facility]21 12:40:53 Influenza, seasonal, injectable, preservative free 06/30/2009 completed Bernadine sweet, [facility] 08/31/2021 12:40:53 influenza, unspecified formulation 05/22/2007 [facility] 12:40:53 zoster recombinant 08/14/2021 [facility]21 12:40:53 COVID-19, mRNA, LNP-S, PF, 30 mcg/0.3 mL dose 09/30/2020 [facility]21 12:40:53 COVID-19, mRNA, LNP-S, PF, 30 mcg/0.3 mL dose 09/09/2020 completed Bernadine sweet, [facility] 08/31/2021 12:40:53 pneumococcal polysaccharide PPV23 08/17/2011 [facility]21 12:40:53 Td (adult), 2 Lf tetanus toxoid, preservative free, adsorbed 09/13/1999 [facility]21 12:40:53 Influenza, high dose seasonal 04/21/2018 [facility]21 12:40:53 Influenza, high dose seasonal 04/16/2017 [facility] 12:40:53 Influenza, high dose seasonal 04/11/2016 completed Bernadine sweet, [facility] 08/31/2021 12:40:53 zoster recombinant 08/17/2020 completed Bernadine sweet [facility] 08/31/2021 12:40:53 Pneumococcal conjugate PCV 13 08/08/2020 completed Bernadine sweet, [facility] 08/31/2021 12:40:53 pneumococcal, unspecified formulation 08/08/2020 completed Not Available Health Note 07/22/2022 12:12:02 SARS-COV-2 (COVID-19) vaccine, UNSPECIFIED 03/22/2022 completed Not Available Health Note 07/22/2022 12:12:02 influenza, unspecified formulation 03/22/2022 completed Not Available Health Note 07/22/2022 12:12:02 Past Encounters Encounter ID Performer Location Encounter Start Date Encounter Closed Date Diagnosis/Indication [id number] Emeterio Martel MD [address] [address] 08/11/2020 12:33:03 08/11/2020 14:53:14 Benign prostatic hyperplasia with outflow obstruction Microscopic hematuria Prostate specific antigen above reference range [id number] Emeterio Martel MD [address] [address] 08/31/2021 12:33:52 08/31/2021 12:53:36 Benign prostatic hyperplasia with outflow obstruction Screening for malignant neoplasm of prostate [id number] Emeterio Martel MD [facility] [address] [place] [id number] 07/26/2022 11:28:18 07/26/2022 12:00:09 Benign prostatic hyperplasia with outflow obstruction Screening for malignant neoplasm of prostate Health Concerns Section Related Observation LastModified by Organization Detai ls LastModified Time None Recorded Concern Status LastModified by Organization Details LastModified Time None Recorded Advance Directives Directive None Recorded Payers Encounter Date Sequence Insurance Name Policy Number Policy Guerra Covered Member ID Guerra Member ID Guarantor Name 07/26/2022 1 [employer] - DOS ON OR AFTER 19 (MEDICARE REPLACEMENT/ ADVANTAGE - PPO) [id number] 2 Navin Mandel [id number] Navin Mandel 08/31/2021 1 [employer] - DOS ON OR AFTER 19 (MEDICARE REPLACEMENT/ ADVANTAGE - PPO) [id number] Navin Mandel [id number] Navin Mandel 08/11/2020 1 [employer] - DOS PRIOR TO 2021 [id number] Navin Mandel [id number] Navin Mandel Notes Date Note Type Note Provider Name and Address Organization Details Recorded Time 08/11/2020 text/html HPI Notes: 2019: HTN, HLD, gout, KEDAR, DJD, ED. CT A/P 07/11/2019 ([place]) = acute diverticulitis, enlarged heterogeneous prostate with bladder wall thickening. PSA 08/10/2019 = 2.01 ng/mL. Cr 08/10/2019 = 1.0 (GFR >60). UA 08/10/2019 = 1+ blood, neg nit/LE, 0-2 RBC/hpf, 0 WBC/hpf. States that he's here for microscopic hematuria in his urine. States that he has never had gross hematuria. States that he's had a history of microscopic hematuria as well. No dysuria. Force of stream it's fine/moderate. Empties bladder. Nocturia 1x/night. Denies frequency. No history of kidney stones. 08/11/20: Cystoscopy on 09/03/2019 showed an obstructing prostate with mild IPP and mild bladder trabeculation. UA 09/03/2019 = small blood, neg nit/LE, 0-2 RBC/hpf, 0-2 WBC/hpf. S/p laparoscopic cholecystectomy 07/12/20. PSA 07/18/20 = 7.45 ng/mL. IPSS = 4. PVR = 51 mL. He states that he's recovering well from the gallbladder surgery. No changes to his voiding since I saw him last. He's not bothered by his voiding. No dysuria. No gross hematuria. SH - Quit smoking 07/08/1981 FH - Father = prostate cancer (dx'd in his late 70s); no bladder or renal cancer. Emeterio Martel MD [address] [facility],[address], [place], [address], [facility] 08/11/2020 13:16:26 08/31/2021 text/html HPI Notes: 2019: HTN, HLD, gout, KEDAR, DJD, ED. CT A/P 07/11/2019 ([place]) = acute diverticulitis, enlarged heterogeneous prostate with bladder wall thickening. PSA 08/10/2019 = 2.01 ng/mL. Cr 08/10/2019 = 1.0 (GFR >60). UA 08/10/2019 = 1+ blood, neg nit/LE, 0-2 RBC/hpf, 0 WBC/hpf. States that he's here for microscopic hematuria in his urine. States that he has never had gross hematuria. States that he's had a history of microscopic hematuria as well. No dysuria. Force of stream it's fine/moderate. Empties bladder. Nocturia 1x/night. Denies frequency. No history of kidney stones. 08/11/20: Cystoscopy on 09/03/2019 showed an obstructing prostate with mild IPP and mild bladder trabeculation. UA 09/03/2019 = small blood, neg nit/LE, 0-2 RBC/hpf, 0-2 WBC/hpf. S/p laparoscopic cholecystectomy 07/12/20. PSA 07/18/20 = 7.45 ng/mL. IPSS = 4. PVR = 51 mL. He states that he's recovering well from the gallbladder surgery. No changes to his voiding since I saw him last. He's not bothered by his voiding. No dysuria. No gross hematuria. 08/31/21: PSA 09/08/20 = 1.73 ng/mL so the decision was made to follow his PSA. PSA 08/14/21 = 2.35 ng/mL. Cr 08/14/21 = 1.0 (GFR >60). IPSS = 1. PVR = 24 mL. He's lost 30 pounds since his gallbladder surgery (intentional). Nocturia 1x/night. He has no voiding concerns. No dysuria. No gross hematuria. He has no specific questions or concerns for me. SH - Quit smoking 07/08/1981 FH - Father = prostate cancer (dx'd in his late 70s); no bladder or renal cancer. Emeterio Martel MD [address] [facility],[address], [place], [address], [place] [facility] 08/31/2021 12:53:23 07/26/2022 text/html HPI Notes: 2019: HTN, HLD, gout, KEDAR, DJD, ED. CT A/P 07/11/2019 ([place]) = acute diverticulitis, enlarged heterogeneous prostate with bladder wall thickening. PSA 08/10/2019 = 2.01 ng/mL. Cr 08/10/2019 = 1.0 (GFR >60). UA 08/10/2019 = 1+ blood, neg nit/LE, 0-2 RBC/hpf, 0 WBC/hpf. States that he's here for microscopic hematuria in his urine. States that he has never had gross hematuria. States that he's had a history of microscopic hematuria as well. No dysuria. Force of stream it's fine/moderate. Empties bladder. Nocturia 1x/night. Denies frequency. No history of kidney stones. 08/11/20: Cystoscopy on 09/03/2019 showed an obstructing prostate with mild IPP and mild bladder trabeculation. UA 09/03/2019 = small blood, neg nit/LE, 0-2 RBC/hpf, 0-2 WBC/hpf. S/p laparoscopic cholecystectomy 07/12/20. PSA 07/18/20 = 7.45 ng/mL. IPSS = 4. PVR = 51 mL. He states that he's recovering well from the gallbladder surgery. No changes to his voiding since I saw him last. He's not bothered by his voiding. No dysuria. No gross hematuria. 08/31/21: PSA 09/08/20 = 1.73 ng/mL so the decision was made to follow his PSA. PSA 08/14/21 = 2.35 ng/mL. Cr 08/14/21 = 1.0 (GFR >60). IPSS = 1. PVR = 24 mL. He's lost 30 pounds since his gallbladder surgery (intentional). Nocturia 1x/night. He has no voiding concerns. No dysuria. No gross hematuria. He has no specific questions or concerns for me. 07/26/22: PSA 07/19/22 = 2.1 ng/mL. PVR = 16 mL. IPSS = 3. He's doing well since the last visit. He had cataract surgery in March 2022. No gross hematuria. No dysuria. SH - Quit smoking 07/08/1981 FH - Father = prostate cancer (dx'd in his late 70s); no bladder or renal cancer. Emeterio Martel MD [address] [facility],[address], [place], [address], [facility] 07/26/2022 11:57:59
--- NOTE | 2023-07-23 10:30 | CRLHL7_ITS ---
For Patients: As a result of the Century Cures Act, medical imaging exams and procedure reports are released immediately into your electronic medical record. You may view this report before your referring provider. If you have questions, please contact your health care provider. INDICATION: Screening for abdominal aortic aneurysm. Nicotine dependence. TECHNIQUE: Conventional two-dimensional grayscale, color-flow and pulsed Doppler ultrasound examination of the abdominal aorta and the common iliac arteries. COMPARISON: None. FINDINGS: Mild atherosclerotic disease is demonstrated, but the abdominal aorta is normal in caliber at 2.4 cm in maximal cross-sectional dimension above the level of the renal artery origins and 2.2 cm below the level of the renal arteries. The common iliac arteries are also normal in caliber. The right measures 0.9 cm in maximal cross-sectional dimension and the left 1.1 cm. IMPRESSION: Negative abdominal aortic ultrasound except for mild atherosclerosis. Dictated by Drew Austin MD @ 07/23/2023 1:45:48 PM (Electronically Signed)
== END 2023-07-23 10:16 | disposition home or self-care (01) ==
LOC: US 10:17
PROVIDERS: PCP Physician Assistant Medical; Visit Provider Physician Assistant Medical
DX: Z87.891 Personal history of nicotine dependence (principal); Z13.6 Encounter for screening for cardiovascular disorders
CPT/HCPCS: 76775

== ENCOUNTER 2024-05-24 11:02 | Emergency (ER) | payer MEDICARE, SELFPAY ==
[2024-05-24 11:08] VITALS: BP 181/80; PULSE 80; RESP 18; TEMP 36.6; O2SAT 93; BMI 25.8
--- NOTE | 2024-05-24 11:41 | CRLHL7_ITS ---
For Patients: As a result of the Century Cures Act, medical imaging exams and procedure reports are released immediately into your electronic medical record. You may view this report before your referring provider. If you have questions, please contact your health care provider. INDICATION: Left calf pain. TECHNIQUE: A compression venous ultrasound exam was performed of the left lower extremity using cruz-scale imaging, color Doppler and spectral Doppler analysis. FINDINGS: Sonographic imaging of the left lower extremity demonstrates normal compressibility and color Doppler venous blood flow within the common femoral vein, deep femoral vein, and the proximal greater saphenous vein. Within the thigh, the femoral vein is patent and compressible. At a lower level, the popliteal and posterior tibial veins also show normal compressibility and color Doppler venous blood flow. Limited imaging of the contralateral groin demonstrates a normal spectral waveform and color Doppler venous blood flow within the right common femoral vein. IMPRESSION: Normal venous ultrasound exam. No evidence of deep vein thrombosis within the left lower extremity. Dictated by Hal Lomax MD @ 05/24/2024 1:38:56 PM (Electronically Signed)
--- NOTE | 2024-05-24 11:42 | ED.GENADULT ---
HPI - General Adult General Chief complaint: Extremity Pain/Injury, Lower Stated complaint: sciatica, wondering if blood clot Time Seen by Provider: 05/24/24 11:37 History of Present Illness HPI narrative: This 73-year-old male comes in with report of pain in his left calf region. He has some sciatica symptoms in his left buttock radiating a bit down into his left upper leg. He states that his upper leg is not having any symptoms but he does have pain in his left calf. He does not report any injury event or strenuous activity recently. He has not had any history of a blood clot but comes in with concern that this pain may be related to that. He does not report any shortness of breath or chest pain. Related Data Home Medications ?Medication ?Instructions ?Recorded ?Confirmed aspirin 81 mg chewable tablet 81 mg PO QDAY 02/05/22 05/23/24 blood sugar diagnostic (Nova Max 02/05/22 05/23/24 Glucose Test strips) blood-glucose meter (Blood Glucose 02/05/22 05/23/24 Monitoring kit) coenzyme Q10 100 mg capsule 100 mg PO QDAY 02/05/22 05/23/24 lancets (Microlet Lancet) 02/05/22 05/23/24 omega 8-fyh-btz-fish oil 1,000 mg 2 cap PO QDAY 02/05/22 05/23/24 (120 mg-180 mg) capsule (Fish Oil) Multiple vitamin PO 03/08/22 05/23/24 prevagen PO 04/08/24 05/23/24 Previous Rx's ?Medication ?Instructions ?Recorded atorvastatin 20 mg tablet 20 mg PO QHS #90 tabs 08/23/23 lisinopril 20 mg tablet 20 mg PO DAILY #90 tabs 08/23/23 cyclobenzaprine 5 mg tablet 5 - 10 mg (1 - 2 x 5 mg) PO BID 05/23/24 PRN muscle spasm #30 tabs ketorolac 10 mg tablet 10 mg PO Q8H 5 days #15 tabs 05/24/24 methylprednisolone 4 mg tablets in See Rx Instructions PO .COMPLEX 05/24/24 a dose pack (Medrol (Drarin)) #21 ea Allergies Allergy/AdvReac Type Severity Reaction Status Date / Time simvastatin Allergy Severe Muscle Verified 05/23/24 10:35 aches, fevers, urinary problems Review of Systems Status of ROS: Reports: 10 or more systems reviewed and unremarkable except as noted in History and below Narrative: Constitutional: No fevers, no weight gain or loss. Eyes: No discharge. No vision changes. HENT: No congestion, no sore throat, no ear pain. Cardiovascular: No chest pain, no palpitations. Respiratory: No shortness of breath, no wheezes, no cough. Gastrointestinal: No abdominal pain, no vomiting, no diarrhea. Genitourinary: No dysuria, no hematuria. Musculoskeletal: Normal range of motion. Skin: No rashes, no pruritis. Neurological: No dizziness, weakness, sensory change, speech change. Endo/Heme/Allergies: No bruising or bleeding. No polydipsia. Pysch: no suicidality, no anxiety, no insomnia. All other systems reviewed and are negative. [facility] Medical History (Updated 05/24/24 @ 13:16 by Chris Bueno MD) Diverticulitis (2019) ?K57.92 - Diverticulitis of intestine, part unspecified, without perforation or abscess without bleeding (ICD-10) Calculus of gallbladder with acute cholecystitis (07/2020) ?K80.00 - Calculus of gallbladder with acute cholecystitis without obstruction (ICD-10) Obstructive sleep apnea syndrome (09/12/09) ?G47.33 - Obstructive sleep apnea (adult) (pediatric) (ICD-10) Mild mitral valve regurgitation ?I34.0 - Nonrheumatic mitral (valve) insufficiency (ICD-10) Injury of right wrist ?S69.91XA - Unspecified injury of right wrist, hand and finger(s), initial encounter (ICD-10) Impaired fasting glucose (07/25/09) ?R73.01 - Impaired fasting glucose (ICD-10) Hyperlipidemia (06/30/09) ?E78.5 - Hyperlipidemia, unspecified (ICD-10) Hematuria (07/25/09) ?R31.9 - Hematuria, unspecified (ICD-10) Gout (07/06/13) ?M10.9 - Gout, unspecified (ICD-10) Erectile dysfunction (06/30/09) ?N52.9 - Male erectile dysfunction, unspecified (ICD-10) Elevated glucose level ?R73.09 - Other abnormal glucose (ICD-10) Diverticulosis of sigmoid colon ?K57.30 - Diverticulosis of large intestine without perforation or abscess without bleeding (ICD-10) Diverticulosis of intestine (07/25/09) ?K57.90 - Diverticulosis of intestine, part unspecified, without perforation or abscess without bleeding (ICD-10) Diverticulitis ?K57.92 - Diverticulitis of intestine, part unspecified, without perforation or abscess without bleeding (ICD-10) 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) ?M47.816 - Spondylosis without myelopathy or radiculopathy, lumbar region (ICD-10) Surgical History (Updated 02/21/22 @ 10:02 by Yessenia Salcido) Status post laparoscopic cholecystectomy (2020) ?Z90.49 - Acquired absence of other specified parts of digestive tract (ICD-10) History of colonoscopy (07/25/09) ?Z98.890 - Other specified postprocedural states (ICD-10) Family History (Updated 02/21/22 @ 10:03 by Yessenia Salcido) Other Colon cancer Pancreatic cancer Social History (Updated 07/18/23 @ 13:36 by Cherie Rivera PA-C) Narrative: Former- smoker ( Quit 40 years ago) Alcohol- less than 1 drink per week Denies recreational drugs Smoking Status: Former smoker Do you use any of these nicotine containing products: None How often do you have a drink containing alcohol: never AUDIT-C Alcohol total score: 0 Non-prescribed substance use: denies use service: No Exam Narrative: Exam Narrative: Constitutional: Well-developed, well-nourished, no acute distress. HEENT: Normocephalic, atraumatic. Neck: Normal range of motion. Nontender. Supple. Heart: Regular. No murmurs. Normal rate. Intact distal pulses. Lungs: Clear to auscultation. No chest discomfort. No wheezes, rhonchi, or rales. Abdomen: Normal bowel sounds. Nontender. No rebound tenderness. Genitalia: Deferred. Back: No midline tenderness. Normal range of motion. Extremities: Normal range of motion. No injury. Pain in the left calf region without any sign of swelling. Skin: Intact. No rash. Warm. No erythema or pallor. Neurologic: No altered sensation. No weakness. Alert and oriented. Psychiatric: No suicidality. No anxiety or depression. No insomnia. Nursing notes and vitals signs are reviewed. Const: Vital Signs, click to edit/add: Vital Signs - 24 hr 05/24/24 11:08 Temperature 98 F Pulse Rate [Pulse Oximeter] 80 Respiratory Rate 18 Blood Pressure [Ri ght Upper Arm] 181/80 H Pulse Oximetry 93 Oxygen Delivery Me thod Room Air Course Vital Signs Vital signs: Initial Vital Signs Temperature 98 F 05/24/24 11:08 Temperature Source Temporal Artery Scan 05/24/24 11:08 Pulse Rate 80 05/24/24 11:08 Respiratory Rate 18 05/24/24 11:08 Blood Pressure 181/80 H 05/24/24 11:08 Blood Pressure Mean 113 H 05/24/24 11:08 Pulse Oximetry 93 05/24/24 11:08 Oxygen Delivery Method Room Air 05/24/24 11:08 Vital Signs Temperature 98 F 05/24/24 11:08 Pulse Rate 80 05/24/24 11:08 Respiratory Rate 18 05/24/24 11:08 Blood Pressure 181/80 H 05/24/24 11:08 Pulse Oximetry 93 05/24/24 11:08 Oxygen Delivery Method Room Air 05/24/24 11:08 Temperature 98 F 05/24/24 11:08 Pulse Rate 80 05/24/24 11:08 Respiratory Rate 18 05/24/24 11:08 Blood Pressure 181/80 H 05/24/24 11:08 Pulse Oximetry 93 05/24/24 11:08 Oxygen Delivery Method Room Air 05/24/24 11:08 Medical Decision Making [facility] Narrative Medical decision making narrative: This patient comes in with report of some left calf pain and is concerned about the possibility of a blood clot. Ultrasound is obtained and shows no evidence of such. His pain is likely related to musculoskeletal or nerve mediated concerns. He is okay to be discharged home. I did provide prescription for Medrol Dosepak and Toradol. Discharge Plan Discharge Clinical Impression: Leg pain, Sciatica Additional Instructions: Take medication as prescribed. Activity as tolerated. Follow up with MD return if worsening. Prescriptions: New ketorolac 10 mg tablet 10 mg PO Q8H 5 Days Qty: 15 0RF methylprednisolone [Medrol (Darrin)] 4 mg tablets,dose pack See Rx Instructions .ROUTE .COMPLEX Qty: 21 0RF Rx Instructions: orally per package directions No Action cyclobenzaprine 5 mg tablet 5 - 10 mg PO BID PRN (Reason: muscle spasm) Qty: 30 0RF Multiple vitamin PO prevagen PO (DME) lancets [Microlet Lancet] Misc See Rx Instructions .Route Rx Instructions: As directed (DME) blood-glucose meter [Blood Glucose Monitoring] Kit See Rx Instructions .Route Rx Instructions: As directed (DME) Nova Max Glucose Test Strip See Rx Instructions .Route Rx Instructions: As directed coenzyme Q10 100 mg capsule 100 mg PO QDAY omega 6-lzk-fkd-fish oil [Fish Oil] 1,000 mg (120 mg-180 mg) capsule 2 cap PO QDAY aspirin 81 mg tablet,chewable 81 mg PO QDAY lisinopril 20 mg tablet 20 mg PO DAILY Qty: 90 2RF atorvastatin 20 mg tablet 20 mg PO QHS Qty: 90 2RF Rx Instructions: once nightly for cholesterol Follow Up/Referrals: Cherie Rivera PA-C [Primary Care Provider] - Stand Alone Forms: Search Initiativesth Info Instructions
--- OUTSIDE RECORDS SUMMARY | 2024-05-24 12:45 | XMS_ITS | Data Portability ---
Author Organization [facility], [facility] Address [address] [place] [address] Care Team Providers Care Master Barber Name Role Phone YANN ARRIETA Primary Care Provider [phone] YANN ARRIETA Referring Provider Assessment No assessment recorded. Plan of Treatment Reminders Order Date Submit Date Provider Last Modified By Organization Details Last Modified Time Details Appointments None recorded. Lab urinalysis, complete 2020 021 [facility], [address], [place], [address], 1 16:57:55 urinalysis, dipstick 2020 021 [facility], [address], [place], [address], 1 12:46:52 PSA, total, serum or plasma - Please do 1 week prior to next visit with Dr. Martel which should be around 1 year from 08/31/212021 023 [email or web address] 6 [facility], [address] [place], [address], 3 08:35:21 urinalysis, dipstick 2021 022 [facility], [address], [place], [address], 2 12:51:13 urinalysis, complete 2021 022 [email or web address] [facility], [address], [place], [address], 2 10:31:53 urinalysis, dipstick 2022 023 [facility], [address], [place], [address], 3 12:19:40 urinalysis, dipstick 2023 024 [facility], [address], [place], [address], 4 13:05:24 urinalysis, microscopic 2023 024 [facility], [address], [place], [address], 4 13:05:26 Referral None recorded. Procedures None recorded. Surgeries None recorded. Imaging None recorded. Medication Orders None recorded. Patient TargetsNo targets recorded. Patient Instructions Encounter Date Encounter Id Patient Instructions Last Modified By Organization Details Last Modified Time 08/11/2020 [id number] BPH: He's not bothered by his voiding. [...] the next PSA. Not available 08/11/2020 13:14:28 08/31/2021 [id number] BPH: He's voidin g well and without any concerns. Will continue to monitor. Prostate cancer screening: His prostate feels benign. His PSA is ok. Repeat in 1 year. Not available 08/31/2021 12:51:27 07/26/2022 [id number] BPH/prostate can cer screening: No concerns with voiding. Will continue to follow that. His prostate felt benign. His PSA is good. Repeat in 1 year. Not available 07/26/2022 11:56:02 07/31/2023 [id number] BPH/weak stream: He's not bothered by his voiding and it's stable. Follow up as needed. Prostate cancer screening: PSA has been stable since the jump several years ago. I think he can continue yearly PSA screening with his primary care provider. I'll be available if he has questions/concerns. Not available 07/31/2023 12:02:27 Reason for Referral None Reported. Results Created Date Observation Date Name Description Value Unit Range Abnormal Flag Note LastModifiedBy Organization Detail LastModifiedTime 07/18/19 21 07/18/2020 PSA, total , serum or plasm a PSA 7.45 high Not Available [facility] [address] [place], [address], 08/10/2020 13:24:34 08/11/19 21 08/11/2020 urina lysis , dipst ick color-status Yellow yellow Not Available [facility] [address], [place], [address], 08/11/2020 12:46:52 08/11/1908/11/2020 urina lysis , dipst ick clarity-stat us Clear clear Not Available [facility] [address], [place], [address], 08/11/2020 12:46:52 08/11/19 21 08/11/2020 urina lysis , dipst ick glucose-stat us Negati ve mg/dL negati ve Not Available [facility] [address] [facility] [address], [place], [address], 08/11/2020 12:46:52 08/11/19 21 08/11/2020 urina lysis , dipst ick bilirubin-ur ine Negati ve negati ve Not Available [facility] [address] [facility] [address], [place], [address], 08/11/2020 12:46:52 08/11/19 21 08/11/2020 urina lysis , dipst ick ketones-stat us Negati ve mg/dL negati ve Not Available [facility] [address] [place] [address] [address], [place], [address], 08/11/2020 12:46:52 08/11/19 21 08/11/2020 urina lysis , dipst ick SG-status >=1.03 0 1.00-1 .03 Not Available [facility] [address] [place] [address] [address], [place], [address], 08/11/2020 12:46:52 08/11/19 21 08/11/2020 urina lysis , dipst ick pH-status 5.5 5.00-8 .00 Not Available [facility] [address] [place] [address] [address], [place], [address], 08/11/2020 12:46:52 08/11/19 21 08/11/2020 urina lysis , dipst ick protein-stat us Negati ve mg/dL negati ve Not Available [facility] [address] [place] [address] [address], [place], [address], 08/11/2020 12:46:52 08/11/19 21 08/11/2020 urina lysis , dipst ick urobilinogen -status 0.2 E.U./d L E.U./ dL 0.2 E.U./d L Not Available [facility] [address] [place] [address] [address], [place], [address], 08/11/2020 12:46:52 02/04/20 21 08/11/2020 urina lysis , dipst ick nitrites-sta tus Negati ve negati ve Not Available [facility] [address] [facility] [address], [place], [address], 08/11/2020 12:46:52 08/11/19 21 08/11/2020 urina lysis , dipst ick blood-urine Small negati ve abnormal Not Available [facility] [address] [facility] [address], [place], [address], 08/11/2020 12:46:52 08/11/19 21 08/11/2020 urina lysis , dipst ick leuko-status Negati ve negati ve Not Available [facility] [address] [facility] [address], [place], [address], 08/11/2020 12:46:52 08/11/19 21 08/11/2020 urina lysis , dipst ick performed by Maggie Hickman Not Available [facility] [address] [facility] [address], [place], [address], 08/11/2020 12:46:52 08/11/19 21 08/11/2020 urina lysis , dipst ick total urine volume (mL) 30 /mL ----- ----- ----- ----- ----- ----- ----- ----- ----- ----- ----- ----- ----- ----- ---- *Plea se note the follo wing minim um quant ities for addit ional urine testi ng: - Atypi cals: 3 mL - Cytol ogy: 20 mL - GC/CH : 2 mL - FISH: 30 mL - Atypi cals w/ GC/CH : 5 mL - Cytol ogy PLUS FISH: 50 mL - Urine Cultu re: 3 mL ----- ----- ----- ----- ----- ----- ----- ----- ----- ----- ----- ----- ----- ----- ---- Not Available [facility] [address] [place] [address], [place], [address], 08/11/2020 12:46:52 08/11/19 21 08/11/2020 urina lysis , compl ete color -advantus YELLOW yellow Not Available [facility] [address] [place] [address], [place], [address], 08/11/2020 16:57:54 08/11/19 21 08/11/2020 urina lysis , compl ete appearance -advantus CLEAR clear Not Available [facility] [address] [place] [address], [place], [address], 08/11/2020 16:57:54 08/11/19 21 08/11/2020 urina lysis , compl ete glucose -advantus NEGATI VE mg/dL negati ve Not Available [facility] [address] [place] [address], [place], [address], 08/11/2020 16:57:54 08/11/19 21 08/11/2020 urina lysis , compl ete bilirubin -advantus NEGATI VE negati ve Not Available [facility] [address] [place] [address], [place], [address], 08/11/2020 16:57:54 08/11/19 21 08/11/2020 urina lysis , compl ete ketones -advantus NEGATI VE mg/dL negati ve Not Available [facility] [address] [place] [address], [place], [address], 08/11/2020 16:57:54 08/11/19 21 08/11/2020 urina lysis , compl ete sp. gravity -advantus >=1.03 0 1.010- 1.025 Not Available [facility] [address] [place] [address] [address], [place], [address], 08/11/2020 16:57:54 08/11/19 21 08/11/2020 urina lysis , compl ete pH -advantus 5.5 5.0-8. 0 Not Available [facility] [address] [place] [address] [address], [place], [address], 08/11/2020 16:57:54 08/11/19 21 08/11/2020 urina lysis , compl ete protein -advantus NEGATI VE mg/dL negati ve Not Available [facility] [address] [place] [address], [place], [address], 08/11/2020 16:57:54 08/11/19 21 08/11/2020 urina lysis , compl ete urobilinogen -advantus 0.2 normal Not Available [facility] [address] [place] [address] [address], [place], [address], 08/11/2020 16:57:54 08/11/19 21 08/11/2020 urina lysis , compl ete nitrites -advantus NEGATI VE negati ve Not Available [facility] [address] [place] [address] [address], [place], [address], 08/11/2020 16:57:54 08/11/19 21 08/11/2020 urina lysis , compl ete blood -advantus TRACE- INTACT negati ve abnormal Not Available [facility] [address] [place] [address], [place], [address], 08/11/2020 16:57:54 08/11/19 21 08/11/2020 urina lysis , compl ete leukocytes -advantus NEGATI VE negati ve Not Available [facility] [address] [place] [address] [address], [place], [address], 08/11/2020 16:57:54 08/11/19 21 08/11/2020 urina lysis , compl ete total urine volume (mL) 30 /mL ----- ----- ----- ----- ----- ----- ----- ----- ----- ----- ----- ----- ----- ----- ---- *Bertin cazares note the follo wing minim um quant ities for addit ional urine testi ng: - Atypi cals: 3 mL - Cytol ogy: 20 mL - GC/CH : 2 mL - FISH: 30 mL - Atypi cals w/ GC/CH : 5 mL - Cytol ogy PLUS FISH: 50 mL - Urine Cultu re: 3 mL ----- ----- ----- ----- ----- ----- ----- ----- ----- ----- ----- ----- ----- ----- ---- Not Available [facility] [address] [place] [address], [place], [address], 08/11/2020 16:57:54 08/11/19 21 08/11/2020 urina lysis , compl ete U-WBC 0 - 2 [hpf] 0 - 2 Not Available [facility] [address] [place] [address], [place], [address], 08/11/2020 16:57:54 08/11/19 21 08/11/2020 urina lysis , compl ete U-RBC 0 - 2 [hpf] 0 - 2 Not Available [facility] [address] [facility] [address], [place], [address], 08/11/2020 16:57:54 08/11/19 21 08/11/2020 urina lysis , compl ete bacteria Small [hpf] negati ve abnormal Not Available [facility] [address] [place] [address] [address], [place], [address], 08/11/2020 16:57:54 08/11/19 21 08/11/2020 urina lysis , compl ete squamous epi Small /lpf negati ve,sma ll Not Available [facility] [address] [facility] [address], [place], [address], 08/11/2020 16:57:54 08/31/19 22 08/31/2021 UA WITHO UT MICRO [facility] color-status Yellow yellow Not Available [facility] [address] [facility] [address], [place], [address], 08/31/2021 12:51:13 08/31/19 22 08/31/2021 UA WITHO UT MICRO [facility] clarity-stat us Clear clear Not Available [facility] [address] [facility] [address], [place], [address], 08/31/2021 12:51:13 08/31/19 22 08/31/2021 UA WITHO UT [facility]CRO [facility] glucose-stat us Negati ve mg/dL negati ve Not Available [facility] [address] [facility] [address], [place], [address], 08/31/2021 12:51:13 08/31/19 22 08/31/2021 UA WITHO UT [facility]CRO [facility] bilirubin-ur ine Negati ve negati ve Not Available [facility] [address] [facility] [address], [place], [address], 08/31/2021 12:51:13 08/31/19 22 08/31/2021 UA [facility]O UT [facility] ketones-stat us Negati ve mg/dL negati ve Not Available [facility] [address] [facility] [address], [place], [address], 08/31/2021 12:51:13 08/31/19 22 08/31/20[address] UA [facility] UT [facility]CRO [facility] SG-status 1.025 1.00-1 .03 Not Available [facility] [address] [facility] [address], [place], [address], 08/31/2021 12:51:13 08/31/19 22 08/31/20[address] UA [facility]O UT [facility]CRO [facility] pH-status 6.0 5.00-8 .00 Not Available [facility] [address] [facility] [address], [place], [address], 08/31/2021 12:51:13 08/31/19 22 08/31/20[address] [facility]A [facility]O UT [facility] protein-stat us Negati ve mg/dL negati ve Not Available [facility] [address] [facility] [address], [place], [address], 08/31/2021 12:51:13 08/31/19 22 08/31/20[address] [facility]A [facility] urobilinogen -status 0.2 E.U./d L E.U./ dL 0.2 E.U./d L Not Available [facility] [address] [facility] [address], [place], [address], 08/31/2021 12:51:13 08/31/19 22 08/31/20[address] [facility]A [facility] UT [facility] nitrites-sta tus Negati ve negati ve Not Available [facility] [address] [facility] [address], [place], [address], 08/31/2021 12:51:13 08/31/19 22 08/31/2021 UA WITHO UT [facility]CRO [facility] blood-urine Small negati ve abnormal Not Available [facility] [address] [facility] [address], [place], [address], 08/31/2021 12:51:13 08/31/19 22 08/31/20[address] UA [facility]O UT [facility] leuko-status Negati ve negati ve Not Available [facility] [address] [facility] [address], [place], [address], 08/31/2021 12:51:13 08/31/19 22 08/31/2021 UA WITHO UT [facility]CRO [facility] performed by Zamzam Chinchilla Not Available [facility] [address] [facility] [address], [place], [address], 08/31/2021 12:51:13 08/31/19 22 08/31/20[address] UA [facility] UT [facility]CRO [facility] total urine volume (mL) 50 /mL ----- ----- ----- ----- ----- ----- ----- ----- ----- ----- ----- ----- ----- ----- ---- *Bertin cazares note the follo wing minim um quant ities for addit ional urine testi ng: - Atypi cals: 3 mL - Cytol ogy: 20 mL - GC/CH : 2 mL - FISH: 30 mL - Atypi cals w/ GC/CH : 5 mL - Cytol ogy PLUS FISH: 50 mL - Urine Cultu re: 3 mL ----- ----- ----- ----- ----- ----- ----- ----- ----- ----- ----- ----- ----- ----- ---- Not Available [facility] [address] [facility] [address], [place], [address], 08/31/2021 12:51:13 07/19/19 23 07/19/2022 PSA, total , serum or plasm a PSA 2.10 Not Available [facility] [address] [place], [address], 07/20/2022 12:49:07 07/26/19 23 07/26/2022 UA DIP CS STATU S color -advantus YELLOW yellow Not Available [facility] [address] [facility] [address], [place], [address], 07/26/2022 12:19:40 07/26/19 23 07/26/2022 UA DIP CS STATU S appearance -advantus CLEAR clear Not Available [facility] [address] [facility] [address], [place], [address], 07/26/2022 12:19:40 07/26/19 23 07/26/2022 UA DIP CS STATU S glucose -advantus NEGATI VE mg/dL negati ve Not Available [facility] [address] [place] [address] [address], [place], [address], 07/26/2022 12:19:40 07/26/19 23 07/26/2022 UA DIP CS STATU S bilirubin -advantus NEGATI VE negati ve Not Available [facility] [address] [place] [address], [place], [address], 07/26/2022 12:19:40 07/26/19 23 07/26/2022 UA DIP CS STATU S ketones -advantus NEGATI VE mg/dL negati ve Not Available [facility] [address] [place] [address], [place], [address], 07/26/2022 12:19:40 07/26/19 23 07/26/2022 UA DIP CS STATU S sp. gravity -advantus 1.025 1.010- 1.025 Not Available [facility] [address] [place] [address] [address], [place], [address], 07/26/2022 12:19:40 07/26/19 23 07/26/2022 UA DIP CS STATU S pH -advantus 5.0 5.0-8. 0 Not Available [facility] [address] [place] [address] [address], [place], [address], 07/26/2022 12:19:40 07/26/19 23 07/26/2022 UA DIP CS STATU S protein -advantus NEGATI VE mg/dL negati ve Not Available [facility] [address] [facility] [address], [place], [address], 07/26/2022 12:19:40 07/26/19 23 07/26/2022 UA DIP CS STATU S urobilinogen -advantus 0.2 0.2 E.U./d L Not Available [facility] [address] [place] [address] [address], [place], [address], 07/26/2022 12:19:40 07/26/19 23 07/26/2022 UA DIP CS STATU S nitrites -advantus NEGATI VE negati ve Not Available [facility] [address] [place] [address] [address], [place], [address], 07/26/2022 12:19:40 07/26/19 23 07/26/2022 UA DIP CS STATU S blood -advantus MODERA TE negati ve abnormal Not Available [facility] [address] [place] [address] [address], [place], [address], 07/26/2022 12:19:40 07/26/19 23 07/26/2022 UA DIP CS STATU S leukocytes -advantus NEGATI VE negati ve Not Available [facility] [address] [place] [address] [address], [place], [address], 07/26/2022 12:19:40 07/26/19 23 07/26/2022 UA DIP CS STATU S performed by GENESIS Dean Not Available [facility] [address] [place] [address] [address], [place], [address], 07/26/2022 12:19:40 07/26/19 23 07/26/2022 UA DIP CS STATU S total urine volume (mL) 50 /mL ----- ----- ----- ----- ----- ----- ----- ----- ----- ----- ----- ----- ----- ----- ---- *Bertin cazares note the follo wing minim um quant ities for addit ional urine testi ng: - Atypi cals: 3 mL - Cytol ogy: 20 mL - GC/CH : 2 mL - FISH: 30 mL - Atypi cals w/ GC/CH : 5 mL - Cytol ogy PLUS FISH: 50 mL - Urine Cultu re: 3 mL ----- ----- ----- ----- ----- ----- ----- ----- ----- ----- ----- ----- ----- ----- ---- This lab resul t is being provi ded to you and your provi andres at the same time in compl iance with the Centu ry Cures Act. Your provi andres may not have had time to revie w and make recom menda tions based on the resul t. Jomar ponce allow up to one week for provi andres revie w. Not Available [facility] [address] [facility] [address], [place], [address], 07/26/2022 12:19:40 07/26/19 23 07/26/2022 UA MICRO SCOPI C U-WBC 0 - 2 [hpf] 0 - 2 Not Available [facility] [address] [facility] [address], [place], [address], 07/26/2022 12:19:42 07/26/19 23 07/26/2022 UA MICRO SCOPI C U-RBC 0 - 2 [hpf] 0 - 2 Not Available [facility] [address] [facility] [address], [place], [address], 07/26/2022 12:19:42 07/26/19 23 07/26/2022 UA MICRO SCOPI C bacteria Small [hpf] negati ve abnormal Not Available [facility] [address] [facility] [address], [place], [address], 07/26/2022 12:19:42 07/26/19 23 07/26/2022 UA MICRO SCOPI C squamous epi Negati ve /lpf negati ve,sma ll This lab resul t is being provi ded to you and your provi andres at the same time in compl iance with the Centu ry Cures Act. Your provi andres may not have had time to revie w and make recom menda tions based on the resul t. Jomar ponce allow up to one week for provi andres revie w. Not Available [facility] [address] [place] [address] [address], [place], [address], 07/26/2022 12:19:42 07/26/19 23 07/26/2022 UA MICRO SCOPI C hyaline cast 0 - 5 [hpf] 0 - 5 Not Available [facility] [address] [place] [address] [address], [place], [address], 07/26/2022 12:19:42 07/19/19 24 07/19/2023 PSA, total , serum or plasm a PSA 2.31 Not Available [address], [address], 07/23/2023 13:54:34 07/31/19 24 07/31/2023 UA WITHO UT MICRO - CS URISC AN blood - uriscan MODERA TE negati ve abnormal Not Available [facility] [address] [place] [address] [address], [place], [address], 07/31/2023 13:05:24 07/31/19 24 07/31/2023 UA WITHO UT MICRO - CS URISC AN bilirubin - uriscan NEGATI VE mg/dL negati ve Not Available [facility] [address] [place] [address] [address], [place], [address], 07/31/2023 13:05:24 07/31/19 24 07/31/2023 UA WITHO UT MICRO - CS URISC AN urobilinogen - uriscan NORMAL mg/dL normal Not Available [facility] [address] [place] [address] [address], [place], [address], 07/31/2023 13:05:24 07/31/19 24 07/31/2023 UA WITHO UT MICRO - CS URISC AN ketones - uriscan NEGATI VE mg/dL negati ve Not Available [facility] [address] [place] [address] [address], [place], [address], 07/31/2023 13:05:24 07/31/19 24 07/31/2023 UA WITHO UT MICRO - CS URISC AN protein - uriscan NEGATI VE mg/dL negati ve Not Available [facility] [address] [place] [address] [address], [place], [address], 07/31/2023 13:05:24 07/31/19 24 07/31/2023 UA WITHO UT MICRO - CS URISC AN nitrites - uriscan NEGATI VE negati ve Not Available [facility] [address] [place] [address] [address], [place], [address], 07/31/2023 13:05:24 07/31/19 24 07/31/2023 UA WITHO UT MICRO - CS URISC AN glucose - uriscan NEGATI VE mg/dL negati ve Not Available [facility] [address] [place] [address] [address], [place], [address], 07/31/2023 13:05:24 07/31/19 24 07/31/2023 UA WITHO UT MICRO - CS URISC AN pH - uriscan 5.00 5.00-9 .00 Not Available [facility] [address] [place] [address] [address], [place], [address], 07/31/2023 13:05:24 07/31/19 24 07/31/2023 UA WITHO UT MICRO - CS URISC AN sp. gravity - uriscan 1.02 1.01-1 .03 Not Available [facility] [address] [place] [address] [address], [place], [address], 07/31/2023 13:05:24 07/31/19 24 07/31/2023 UA WITHO UT MICRO - CS URISC AN leukocytes - uriscan NEGATI VE negati ve Not Available [facility] [address] [facility] [address], [place], [address], 07/31/2023 13:05:24 07/31/19 24 07/31/2023 UA WITHO UT MICRO - CS URISC AN color - uriscan YELLOW lt. yellow ;yello w Not Available [facility] [address] [facility] [address], [place], [address], 07/31/2023 13:05:24 07/31/19 24 07/31/2023 UA WITHO UT MICRO - CS URISC AN clarity - uriscan CLEAR clear Not Available [facility] [address] [facility] [address], [place], [address], 07/31/2023 13:05:24 07/31/19 24 07/31/2023 UA WITHO UT MICRO - CS URISC AN total urine volume (mL) 60 /mL ----- ----- ----- ----- ----- ----- ----- ----- ----- ----- ----- ----- ----- ----- ---- *Bertin cazares note the follo wing minim um quant ities for addit ional urine testi ng: - Atypi cals: 3 mL - Cytol ogy: 20 mL - GC/CH : 2 mL - FISH: 30 mL - Atypi cals w/ GC/CH : 5 mL - Cytol ogy PLUS FISH: 50 mL - Urine Cultu re: 3 mL ----- ----- ----- ----- ----- ----- ----- ----- ----- ----- ----- ----- ----- ----- ---- This lab resul t is being provi ded to you and your provi andres at the same [facility] C[facility]. Your provi andres may not have had time to revie w and make recom menda tions based on the resul t. Jomar e allow up to one week for provi andres revie w. Not Available [facility] [address] [facility] [address], [place], [address], 07/31/2023 13:05:24 07/31/19 24 07/31/2023 UA MICRO SCOPI C U-WBC 0 - 2 [hpf] 0 - 2 Not Available [facility] [address] [facility] [address], [place], [address], 07/31/2023 13:05:26 07/31/19 24 07/31/2023 UA MICRO SCOPI C U-RBC 0 - 2 [hpf] 0 - 2 Not Available [facility] [address] [facility] [address], [place], [address], 07/31/2023 13:05:26 07/31/19 24 07/31/2023 UA MICRO SCOPI C bacteria RARE [hpf] none;r are Not Available [facility] [address] [facility] [address], [place], [address], 07/31/2023 13:05:26 07/31/19 24 07/31/2023 UA MICRO SCOPI C squamous epi SMALL /lpf negati ve,sma ll This lab resul t is being provi ded to you and your provi andres at the same time in compl iance with the ry Cures Act. Your provi andres may not have had time to revie w and make recom menda tions based on the resul t. Jomar e allow up to one week for provi andres revie w. Not Available [facility] [address] [facility] [address], [place], [address], 07/31/2023 13:05:26 07/31/19 24 07/31/2023 UA MICRO SCOPI C mucus PRESEN T [hpf] not presen t abnormal Not Available [facility] [address] [facility] [address], [place], [address], 07/31/2023 13:05:26 Result Notes None recorded. Problems Name Problem SNOMED Code Status Onset Date Resolution Date Notes Provider Name and Address Organization Details Recorded Time Microscop ic hematuria 678259806 Active 2019 R31.21 : Microscopi c hematuria Not Available [facility] 0 00:24:56 Prostate specific antigen above reference range 745560747 Active 2020 Emeterio Martel MD [address] [place] [address],[address], [address] , [facility] 1 13:05:15 Screening for malignant neoplasm of prostate Active 2021 Emeterio Martel MD [address] [place] [address],[address], [address] , [facility] 2 12:51:27 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 Procedures Surgical History Date Name Laterality Status Provider Name and Address Organization Details Recorded Time 07/31/19 24 Bladder Scan completed Judy Martins [facility] 07/31/2023 11:43:06 07/26/19 23 Bladder Scan completed Hector Bateman [facility] 07/26/2022 11:52:57 08/31/19 22 Bladder Scan completed Bernadine Haas [facility] 08/31/2021 12:43:36 08/11/19 21 Past Data Reviewed completed Emeterio Martel MD [address] [place] [address],[address], [place], [address], [facility] 08/11/2020 13:14:55 08/11/19 Bladder Scan completed Bernadine Haas [facility] 08/11/2020 12:59:52 09/03/19 urine capacity measure completed Not Available Health Note 07/22/2022 12:11:57 09/03/19 Cystoscopy completed Not Available Health Note 07/22/2022 12:11:57 08/09/19 Colonoscopy thru stoma spx completed Not Available Health Note 07/22/2022 12:11:57 Laparoscopic cholecystectomy completed Not Available Health Note 07/22/2022 12:11:57 Imaging Results None recorded. Procedure Notes None recorded. Medical Equipment None Reported. Allergies Allergen ID Allergen Name Allergen Category Reaction Reaction Severity Criticality Documentation Date Start Date Code Code System Note Provider Name and Address Organization Details Recorded Time 438023 simvastat in medicatio n Not available Not available Not available 12/16/2019 06448 RxNorm Not Available [facility] 0 23:59:00 Medications Name Sig Start Date Stop Date Status Note LastModified by Organization Details LastModified Time atorvasta tin 20 mg tablet 20mg 1/day active Not Available Not Available No t Available pravastat in 40 mg tablet TAKE ONE TABLET BY MOUTH AT BEDTIME 07/31 completed HN: Patient reports taking HN: Patient reports no longer taking Not Available Not Available Not Available meloxicam 15 mg tablet TAKE 1 TABLET BY MOUTH DAILY* active Not Available Not Available No t Available lisinopri l 20 mg tablet TAKE 1 TABLET BY MOUTH DAILY. active Not Available Not Available No t Available ketorolac 0.5 % eye drops Beginnin g 4 hours after surgery, instill 1 drop in surgical eye 4 times daily until gone. Do not exceed 3 weeks. 07/31 completed HN: Patient reports no longer taking Not Available Not Available Not Available prednisol one acetate 1 % eye drops,alize pension Beginnin g 4 hours after surgery, instill 1 drop in surgical eye 4 times daily until gone. Do not exceed 3 weeks. active HN: Patient reports no longer taking Not Available Not Available Not Available cephalexi n 500 mg capsule TAKE ONE CAPSULE BY MOUTH TWICE DAILY for 5 days active Not Available Not Available No t [...] until gone. Do not exceed 3 weeks. 07/31 completed HN: Patient reports no longer taking Not Available Not Available Not Available Adult Aspirin Regimen 81 mg tablet,de layed release Take 1 tablet every day by oral route. active HN: Patient reports taking Not Available Not Available Not Available Vitals Date Recorded Body height Body mass index (BMI) Body weight Provider Name and Address Organization Details Last Updated DateTime 07/26/2022 165.1 cm 23.6 kg/m2 17821.12 g Hector Bateman [facility] 07/26/2022 11:29:18 Date Recorded Body weight Body mass index (BMI) Body height Provider Name and Address Organization Details Last Updated DateTime 07/31/2023 90446.32149 04644 g 26 kg/m2 165.1 cm Not Available Health Note 07/31/2023 11:31:55 Date Recorded Body height Body mass index (BMI) Body weight Provider Name and Address Organization Details Last Updated DateTime 08/11/2020 165.1 cm 26.1 kg/m2 95368 g Bernadine Haas [facility] 08/11/2020 12:58:23 Date Recorded Body height Body weight Body mass index (BMI) Provider Name and Address Organization Details Last Updated DateTime 08/31/2021 165.1 cm 45252.32910 23815 g 23.6 kg/m2 Not Available Health Note 08/31/2021 12:34:51 Social History Question Answer Notes LastModified by Organizat ion Details LastModified Time Tobacco Smoking Status Former Smoker Not Available Health Note 2023 12:57:40 What Is Your Level Of Alcohol Consumption? NONE [email or web address] Information not available 2023 What Is Your Level Of Caffeine Consumption? Moderate [email or web address] Information not available 2023 How Much Tobacco Do You Chew? None [email or web address] Information not available 2023 Do You Or Have You Ever Used E-cigarettes Or Vape? Never Used Electronic Cigarettes [email or web address] Information not available 2023 When Did You Quit Smoking? 16+ Years Since Last Cigarette [email or web address] Information not available 2023 Race White [email or web address] Information n ot available 12/17/2019 Marital Status [email or web address] Informatio n not available 08/27/2021 What Was The Date Of Your Most Recent Tobacco Screening? 07/31/2023 [email or web address] Information not available 2023 What Is Your Relationship Status? [email or web address] Information not available 2023 Are You Sexually Active? Yes [email or web address] Information not available 2023 Do You Or Have You Ever Used Smokeless Tobacco? Never Used Smokeless Tobacco [email or web address] Information not available 2023 Do You Use Any Illicit Or Recreational Drugs? No [email or web address] Information not available 2023 Has Tobacco Cessation Counseling Been Provided? No [email or web address] Information not available 07/26/2022 How Many Years Have You Smoked Tobacco? 12 [email or web address] Information not available 2023 Do You Or Have You Ever Used Any Other Forms Of Tobacco Or Nicotine? No [email or web address] Information not available 07/31/2023 How Many Days In The Past Year Have You Consumed 5 Or More Drinks? 0 [email or web address] Information no t available 2023 Sex: Male Functional Status None recorded. Mental Status None recorded. Family History Nothing Reported Notes:Diabetes:Runs in Famil y colon cancer:Father Cancer, prostate:Father Cancer, pancreatic:Mother Medical History Condition Response High Blood Pressure Y Kidney Stones N Lung Disease N Depression N GERD/Acid Reflux N Sexually Transmitted Infection N Diabetes N Bleeding Disorder N Cancer N High Cholesterol Y Heart Disease N Immunizations Vaccine Type Date Status Provider Name and Address Organization Details Recorded Time zoster live 08/17/2020 completed Not Available Health Note 0 2023 12:57:43 SARS-COV-2 (COVID-19) vaccine, UNSPECIFIED 04/07/2023 completed Not Available Health Note 2023 12:57:43 influenza, unspecified formulation 04/07/2023 completed Not Available Health Note 2023 12:57:43 pneumococcal, unspecified formulation 07/08/2019 completed Not Available Health Note 2023 12:57:43 influenza, unspecified formulation 04[facility]18[facility]2021 [facility] 12:40:53 pneumococcal, unspecified formulation 08/08/2020 [facility] 12:40:53 SARS-COV-2 (COVID-19) vaccine, UNSPECIFIED 09/30/2020 [facility] 12:40:53 Influenza, split virus, trivalent, PF 08/17/2011 [facility] 12:40:53 Influenza, high-dose, trivalent, PF 04/27/2019 [facility] 12:40:53 influenza, unspecified formulation 04/17/2006 [facility] 12:40:53 zoster recombinant 02/25/2020 [facility] 12:40:53 Influenza, high-dose, trivalent, PF 06/14/2015 [facility] 12:40:53 Influenza, high-dose, quadrivalent, PF 04/18/2021 [facility] 12:40:53 Tdap 08/01/2007 [facility] 12:40:53 Pneumococcal conjugate PCV 13 07/29/2015 completed Bernadine Haas null, [facility] 08/31/2021 12:40:53 pneumococcal polysaccharide PPV23 08/08/2020 completed Bernadine Haas null, [facility] 08/31/2021 12:40:53 Influenza, high-dose, quadrivalent, PF 04/26/2020 completed Bernadine Haas null, [facility] 08/31/2021 12:40:53 Td (adult), 2 Lf tetanus toxoid, preservative free, adsorbed 08/10/2019 completed Bernadine Haas null, [facility] 08/31/2021 12:40:53 COVID-19, mRNA, LNP-S, PF, 30 mcg/0.3 mL dose 04/18/2021 completed Bernadine Haas null, [facility] 08/31/2021 12:40:53 Novel [id number]-[id number], all formulations 06/30/2009 completed Bernadine Haas null, [facility] 08/31/2021 12:40:53 Influenza, split virus, trivalent, PF 06/30/2009 completed Bernadine Haas null, [facility] 08/31/2021 12:40:53 influenza, unspecified formulation 05/22/2007 completed Bernadine Haas null, [facility] 08/31/2021 12:40:53 zoster recombinant 08/14/2021 [facility] 12:40:53 COVID-19, mRNA, LNP-S, PF, 30 mcg/0.3 mL dose 09/30/2020 completed Bernadine Haas null, [facility] 08/31/2021 12:40:53 COVID-19, mRNA, LNP-S, PF, 30 mcg/0.3 mL dose 09/09/2020 completed Bernadine Haas null, [facility] 08/31/2021 12:40:53 pneumococcal polysaccharide PPV23 08/17/2011 [facility] 12:40:53 Td (adult), 2 Lf tetanus toxoid, preservative free, adsorbed 09/13/1999 completed Bernadine Haas null, [facility] 08/31/2021 12:40:53 Influenza, high-dose, trivalent, PF 04/21/2018 completed Bernadine sweet, [facility] 08/31/2021 12:40:53 Influenza, high-dose, trivalent, PF 04/16/2017 completed Bernadine sweet, [facility] 08/31/2021 12:40:53 Influenza, high-dose, trivalent, PF 04/11/2016 completed Bernadine sweet, [facility] 08/31/2021 12:40:53 zoster recombinant 08/17/2020 completed Bernadine sweet, [facility] 08/31/2021 12:40:53 Pneumococcal conjugate PCV 13 08/08/2020 completed Bernadine sweet, [facility] 08/31/2021 12:40:53 pneumococcal, unspecified formulation 08/08/2020 completed Not Available Health Note 07/22/2022 12:12:02 SARS-COV-2 (COVID-19) vaccine, UNSPECIFIED 03/22/2022 completed Not Available Health Note 07/22/2022 12:12:02 influenza, unspecified formulation 03/22/2022 completed Not Available Health Note 07/22/2022 12:12:02 Past Encounters Encounter ID Performer Location Encounter Start Date Encounter Closed Date Diagnosis/Indication Diagnosis SNOMED-CT Code Diagnosis ICD10 Code [id number] Emeterio Martel MD [address] [address] 08/11/2020 12:33:03 08/11/2020 14:53:14 Benign prostatic hyperplasia with outflow obstruction 930264510 N40.1 Microscopic hematuria 19 8535564 R31.29 Prostate s pecific antigen above reference range 868430937 R97.20 [id number] Emeterio Martel MD [address] [address] 08/31/2021 12:33:52 08/31/2021 12:53:36 Benign prostatic hyperplasia with outflow obstruction 847897259 N40.1 Screening for malignant neoplasm of prostate 194829097 Z12.5 [id number] [facility] [place] [address] 07/26/2022 11:28:18 07/26/2022 12:00:09 Benign prostatic hyperplasia with outflow obstruction 585680357 N40.1 Screening for malignant neoplasm of prostate 180431995 Z12.5 [id number] Emeterio Martel MD [facility] [address],[facility] e [address] [place] [address] 07/31/2023 11:29:28 07/31/2023 12:02:57 Benign prostatic hyperplasia with outflow obstruction 291155533 N40.1 Screening for malignant neoplasm of prostate 647490421 Z12.5 Slowing of urinary stream 84063681 R39.12 Health Concerns Section Related Observation LastModified by Organization Detai ls LastModified Time None Recorded Concern Status LastModified by Organization Details LastModified Time None Recorded Advance Directives Directive None Recorded Payers Encounter Date Sequence Insurance Name Policy Number Policy Guerra Covered Member ID Guerra Member ID Guarantor Name 08/11/2020 1 [employer] - DOS PRIOR TO 2021 [id number] Navin Mandel [id number] Navin Mandel 08/31/2021 1 [employer] - DOS ON OR AFTER 19 (MEDICARE REPLACEMENT/ ADVANTAGE - PPO) [id number] Navin Mandel [id number] Navin Mandel 07/26/2022 1 [employer] - DOS ON OR AFTER 19 (MEDICARE REPLACEMENT/ ADVANTAGE - PPO) [id number] Navin Mandel [id number] Navin Mandel 07/31/2023 1 [employer] - DOS ON OR AFTER 19 (MEDICARE REPLACEMENT/ ADVANTAGE - PPO) [id number] Navin Mandel [id number] Navin Mandel Notes Date Note Type Note Provider Name and Address Organization Details Recorded Time 08/11/2020 text/html 09/03/2019: HTN, HLD, gout, [facility]ED[facility], DJD, ED. CT A/P 07/11/2019 ([place]) = acute diverticulitis, enlarged heterogeneous prostate with [...] or renal cancer. Emeterio Martel MD [address] [facility], [place], [address], [facility] 08/11/2020 13:16:26 08/31/2021 text/html 09/03/2019: HTN, HLD, gout, KEDAR, DJD, ED. CT A/P 07/11/2019 ([place]) = acute diverticulitis, enlarged heterogeneous prostate with [...] 2.35 ng/mL. Cr 08/14/21 = 1.0 (GFR >60).IPSS = 1. PVR = 24 mL. He's lost 30 pounds since his gallbladder surgery (intentional). Nocturia 1x/night. He has no voiding concerns. No dysuria. No gross hematuria. He has no specific questions or concerns for me. SH - Quit smoking 07/08/1981 FH - Father = prostate cancer (dx'd in his late 70s); no bladder or renal cancer. Emeterio Martel MD [address] [facility],[address], [place], [address], [facility] 08/31/2021 12:53:23 07/26/2022 text/html 09/03/2019: HTN, HLD, gout, KEDAR, DJD, ED. CT A/P 07/11/2019 ([place]) = acute diverticulitis, enlarged heterogeneous prostate with [...] 2.35 ng/mL. Cr 08/14/21 = 1.0 (GFR >60).IPSS = 1. PVR = 24 mL. He's lost 30 pounds since his gallbladder surgery (intentional). Nocturia 1x/night. He has no voiding concerns. No dysuria. No gross hematuria. He has no specific questions or concerns for me. 07/26/22: PSA 07/19/22 = 2.1 ng/mL.PVR = 16 mL. IPSS = 3. He's doing well since the last visit. He had cataract surgery in March 2022. No gross hematuria. No dysuria. SH - Quit smoking 07/08/1981 FH - Father = prostate cancer (dx'd in his late 70s); no bladder or renal cancer. Emeterio Martel MD [address] [facility],[address], [place], [address], [facility] 07/26/2022 11:57:59 07/31/2023 text/html 09/03/2019: HTN, HLD, gout, KEDAR, DJD, ED. CT A/P 07/11/2019 ([place]) = acute diverticulitis, enlarged heterogeneous prostate with [...] 2.35 ng/mL. Cr 08/14/21 = 1.0 (GFR >60).IPSS = 1. PVR = 24 mL. He's lost 30 pounds since his gallbladder surgery (intentional). Nocturia 1x/night. He has no voiding concerns. No dysuria. No gross hematuria. He has no specific questions or concerns for me. 07/26/22: PSA 07/19/22 = 2.1 ng/mL.PVR = 16 mL. IPSS = 3. He's doing well since the last visit. He had cataract surgery in March 2022. No gross hematuria. No dysuria. 07/31/23: PSA 07/19/23 = 2.31 ng/mL.IPSS = 6. PVR = 120 mL. He's doing terrific. He states that his stream isn't like when he was 17. He's not bothered by his voiding. He feels that he empties his bladder. Nocturia 1x/night. No dysuria. No gross hematuria. SH - Quit smoking 07/08/1981 FH - Father = prostate cancer (dx'd in his late 70s); no bladder or renal cancer. Emeterio Martel MD [address] [facility],[address], [place], [address], [facility] 07/31/2023 12:02:43
[2024-05-24 13:15] VITALS: BP 108/86; PULSE 72; RESP 16; O2SAT 93
== END 2024-05-24 13:27 | disposition home or self-care (01) ==
PROVIDERS: Emergency Provider Emergency Medicine Emergency Medical Services; PCP Physician Assistant Medical
DX: M54.32 Sciatica, left side (principal)
CPT/HCPCS: 93971; 99283; 99284

== ENCOUNTER 2024-06-18 09:15 | Outpatient (RCR) | payer MEDICARE, SELFPAY ==
--- NOTE | 2024-06-12 13:03 | PT.OPE ---
PT [place] Out[facility] Eval PT [facility] Outpatient Eval Start: 06/11/24 12:42 Freq: Status: Active Protocol: Document 06/11/24 12:43 JEN (Rec: 06/11/24 12:46 JEN [id number]) E-signed By DEAN PruettT, MS Physical Therapy Outpatient Evaluation Insurance Information Recert Due Date 09/09/24 Insurance Name Medicare B,[employer] Medical Diagnosis Pain in left leg Treating Diagnosis L-sided LS pain with radicular sxs, decreased B (L>R) LS and LE flexibility, gait dysfunction, and B LE and core weakness Subjective Preferred Name Khari Donis Pt presents to PT with c/o L- sided LS pain with radicular sxs of insidious origin 3 weeks ago. Pt woke with high levels of sharp burning pain in his L glute max extending distally to his L hamstring and anterior celeste. Pt went to urgent care with no improvement with muscle relaxants and the ED the next day with negative testing for DVTs. Sxs have improved in intensity but he continues to have burning and aching in his L anterolateral celeste with extended standing and walking. Pt golfs 4-6 days per week during the warm months and has only used a simulator a few times since early May. Radiographs on 06/10/24 found ? Left convex thoracolumbar curve. Reversal of the normal lumbar lordosis in the mid lumbar spine. Disc space narrowing and endplate hypertrophy throughout the lumbar spine greatest at L1-2 and L2-3. No fractures. Lower lumbar facet arthritis.? Denies other significant PMH. AGGR factors: extended standing, carrying objects, walking, sleeping on R side. ALLEV factors: stretching, walking with shopping cart, movement, supine. Hopes to return to golfing, performing household and yard work, and walking >1 mile with his with minimal sxs. Pain Comments 0-5/10 Current Work Status Retired Occupation retired advertising professional Precautions Therapy Limitations/Systems Review Not Limited Objective Functional Test Performed & Score Modified OSWESTRY: 30% Assessment Assessment/Impression Pt displays LS flex directional preference of movement with signs and symptoms consistent with mechanical LS pain with L- sided LS radiculopathy. B (L>R ) LS, hamstring and hip tightness combined with B glute weakness appears to be contributing to sxs. + slump testing on L with sciatic neural tension. Excellent response to biking, LE distraction, stretching and strengthening exercises with improved quality of gait, decreased L LS pain and minimal radicular sxs following. He will benefit from continued skilled therapy to address these limitations. Primary Functional Limitations Extended standing, carrying objects, walking, sleeping on R side Plan of Care Rehabilitation Potential Excellent Physical Therapy Goals Short-term goals to be completed in 4 weeks: 1. Pt will display improved B LE muscular strength as evidenced by performing >12 SLR of good quality to improve quality of gait. 2. Pt will report improved quality of sleep waking <2x per night due to L-sided LS pain and radicular sxs for >3 consecutive days. 3. 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 Long-term goals to be completed in 10 weeks: 1. Pt will be independent and compliant with HEP 2. Pt will display improved B hip flex, ABD and ext, and abdominal strength of >4/5 to improve tolerance to functional daily activities. 3. Pt will be able to walk for >12 minutes with no elevation in LS pain or radicular sxs to improve cardiovascular health. 4. Pt will report >75% improvement in modified OSWESTRY questionnaire to significantly improve tolerance to functional activities. Coordination/Communication With Referral Source Treatment Plan/Direct Interventions Joint Mobilization,Manual Therapy,Therapeutic Exercises, Traction (Mechanical) Frequency/Duration 1x per week for at least 6-10 visits, decreasing frequency as able. Patient Will Be Discharged From Therapy Completion of LTG(s),Skills Plateau,Independent w/HEP, Independently Progressing Evaluation Billing Untimed Code Treatment Minutes 25 Complexity Moderate Certification Information Initial Certification Date 06/11/24 Ending Certification Date 09/09/24 Provider Signature Required Yes Provider Signature Shows Agreement With POC & Medical Necessity Physician NPI Number Write NPI# Here Physician Comment/Change : Physician Signature & Date Requested Please Sign/Date Here
== END 2024-10-16 23:59 | disposition home or self-care (01) ==
PROVIDERS: PCP Physician Assistant Medical; Visit Provider Physician Assistant Medical
DX: M79.605 Pain in left leg (principal); Z51.89 Encounter for other specified aftercare
CPT/HCPCS: 97110; 97140; 97162

== ENCOUNTER 2024-08-04 10:01 | Outpatient (CLI) | payer MEDICARE, SELFPAY | END 2024-08-04 10:02 | disposition home or self-care (01) | LOC: NFLDREF 08-05 07:44 | PROVIDERS: PCP Physician Assistant Medical; Referring Provider Physician Assistant Medical; Visit Provider Physician Assistant Medical | DX: E78.5 Hyperlipidemia, unspecified (principal); I10 Essential (primary) hypertension; Z12.5 Encounter for screening for malignant neoplasm of prostate | CPT/HCPCS: 80053; 80061; G0103 ==

== ENCOUNTER 2025-03-17 10:14 | Outpatient (CLI) | payer MEDICARE, SELFPAY | END 2025-03-17 10:15 | disposition home or self-care (01) | LOC: NFLDREF 03-22 14:07 | PROVIDERS: PCP Physician Assistant Medical; Referring Provider Physician Assistant Medical; Visit Provider Physician Assistant Medical | DX: R10.9 Unspecified abdominal pain (principal) | CPT/HCPCS: 87086 ==

== ENCOUNTER 2025-03-22 07:58 | Outpatient (CLI) | payer MEDICARE, SELFPAY ==
--- NOTE | 2025-03-22 08:15 | CRLHL7_ITS ---
For Patients: As a result of the Century Cures Act, medical imaging exams and procedure reports are released immediately into your electronic medical record. You may view this report before your referring provider. If you have questions, please contact your health care provider. INDICATION: COMPARISON: none TECHNIQUE: Real time cruz scale imaging and color Doppler analysis was performed of the right upper quadrant. FINDINGS: Liver parenchyma is coarsened and increased. Liver measures 16.3 cm. Hyperechoic lesion within the liver measures 6 x 5 x 6 millimeters consistent with intrahepatic hemangioma. There is a normal appearance of the hepatic IVC and proximal abdominal aorta. There is no evidence of ascites. The gallbladder is absent. The common bile duct is of normal size and measures 6 mm in diameter at the level of the rickey hepatis. The pancreas appears heterogeneous. There is no evidence of a stone or hydronephrosis within the right kidney. The right kidney measures 10.4 cm in length. Small benign cyst is present which measures 6 x 4 x 7 millimeters and 7 x 4 x 7 millimeters. IMPRESSION: Hepatic steatosis and benign intrahepatic hemangioma. Status post cholecystectomy without biliary obstruction. Benign right renal cysts. Dictated by Emeterio Barbosa MD @ 03/22/2025 12:39:24 PM (Electronically Signed)
== END 2025-03-22 07:59 | disposition home or self-care (01) ==
PROVIDERS: PCP Physician Assistant Medical; Visit Provider Physician Assistant Medical
DX: R10.9 Unspecified abdominal pain (principal); K76.0 Fatty (change of) liver, not elsewhere classified; N28.1 Cyst of kidney, acquired
CPT/HCPCS: 76705